=== PATIENT | female | born 1970 | race African-American/Black ===

== ENCOUNTER 2020-05-24 16:22 | Inpatient (IN) | payer MEDICAID, OTHER ==
[~2020-05-24] VITALS: Ht 154.9 cm; Wt 62.6 kg
--- NOTE | 2020-05-24 16:22 | NUR ---
PT BIBRA FROM HOME C/O NAUSEA/VOMITING. PT IS AAOX4, NOT IN RESPIRATORY DISTRESS, HOOKED TO SKIRT PANEL ASSEMBLER, KEPT RESTED AND COMFORTABLE. WILL CONTINUE TO MONITOR.
--- NOTE | 2020-05-24 16:42 | NUR ---
PT SEEN AND EXAMINED BY .
--- NOTE | 2020-05-24 16:48 | NUR ---
IV LINE ESTABLISHED BLOOD DRAWN AND SENT TO LAB.
--- NOTE | 2020-05-24 16:53 | NUR ---
URINAL GIVEN BUT UNABLE TO PROVIDE URINE SPECIMEN THIS TIME.
[2020-05-24] MEDS ORDERED: LIDOCAINE VISCOUS 2% UD 15 ML UDC ONE (16:59)
[2020-05-24] MEDS ORDERED: MAG HYDROX/AL HYDROX/SIMETH 30 ML UDC ONE (16:59)
[2020-05-24] MEDS ORDERED: PANTOPRAZOLE 40 MG VIAL ONE (16:59)
[2020-05-24] MEDS ORDERED: MAG HYDROX/AL HYDROX/SIMETH 30 ML UDC PO ONE (17:00)
[2020-05-24] MEDS ORDERED: IV NS 0.9% 1,000 ML BAG IV ONE (17:00)
[2020-05-24] MEDS ORDERED: PANTOPRAZOLE 40 MG VIAL IV ONE (17:00)
[2020-05-24] MEDS ORDERED: LIDOCAINE VISCOUS 2% UD 15 ML UDC MM ONE (17:00)
--- NOTE | 2020-05-24 17:00 | NUR ---
MOLD STAMPER AT BEDSIDE FOR XRAY
[2020-05-24 17:39] LABS: BASOPHILS % (AUTO) 0.1 % (0.0-2.0); EOSINOPHILS % (AUTO) 16.6 % (0.0-6.0); HEMATOCRIT 44 % (33-45); LYMPHOCYTES # (AUTO) 0.3 /CMM (0.8-4.8); MEAN CORPUSCULAR HGB CONC 32 g/dl (31.0-36.0); MEAN CORPUSCULAR VOLUME 102 fL (82-100); MONOCYTES # (AUTO) 0.5 /CMM (0.1-1.30); MONOCYTES % (AUTO) 3.9 % (2.0-12.0); NEUTROPHILS # (AUTO) 10.8 /CMM (1.8-8.9); NEUTROPHILS % (AUTO) 77.4 % (43.0-81.0); PLATELET COUNT (AUTO) 131 /CMM (150-450); RED BLOOD CELL COUNT(AUTO) 4.26 MIL/uL (4.0-5.2)
[2020-05-24 18:21] LABS: ALANINE AMINOTRANSFERASE < 6 U/L (12-78); ALBUMIN 3.8 g/dL (3.4-5.0); ALKALINE PHOSPHATASE 358 U/L (46-116); BILIRUBIN,DIRECT 6.8 mg/dL (0.0-0.2); BILIRUBIN,TOTAL 8.9 mg/dL (0.2-1.0); CALCIUM, SERUM 9.9 mg/dL (8.5-10.1); CHLORIDE 96 mmol/L (98-107); POTASSIUM 4.5 mmol/L (3.5-5.1); SODIUM SERUM 138 mmol/L (136-145); TOTAL PROTEIN, SERUM 7.6 g/dL (6.4-8.2); UREA NITROGEN, BLOOD 39 mg/dL (7-18)
[2020-05-24 18:25] LABS: ACETAMINOPHEN < 2 ug/ml (10-30); ALCOHOL, BLOOD < 3 mg/dL (0-0); SALICYLATE < 0.2 mg/dL (2.8-20.0)
[2020-05-24 18:27] LABS: GLUCOSE 23 mg/dL (74-106)
[2020-05-24] MEDS ORDERED: DEXTROSE 50%-WATER 50 ML DISP.SYRIN ONE (18:29)
[2020-05-24] MEDS ORDERED: DEXTROSE 50%-WATER 50 ML DISP.SYRIN IVP ONE (18:30)
[2020-05-24 18:37] LABS: CARBON DIOXIDE 12 mmol/L (21-32)
--- NOTE | 2020-05-24 19:06 | NUR ---
REPORT GIVEN TO TAMEKA FRENCH FOR ERLINDA.
--- NOTE | 2020-05-24 19:22 | NUR ---
PATIENT IS AAOX4. NOT IN ANY DISTRESS. CONNECTED TO MONITOR. DISPOSED OF USED EMESIS BAG, PROVIDED WITH NEW EMESIS BAG. BREATHING EVENLY AND UNLABORED ON ROOM AIR.
--- NOTE | 2020-05-24 19:28 | NUR ---
PATIENT IS UNABLE TO PROVIDE URINE. Addendum: 05/24/20 at 1945 by BENEDICTO NOTIFIED
--- NOTE | 2020-05-24 19:28 | NUR ---
DR. RIZZO SPEAKING WITH DR. WILLIS
[2020-05-24] MEDS ORDERED: IV NS 0.9% 1,000 ML IV ONE (20:00)
--- NOTE | 2020-05-24 20:55 | NUR ---
BED ASSIGNMENT 322-2
--- NOTE | 2020-05-24 21:00 | NUR ---
TRIED CALLING FOR REPORT, STAFF STATES THAT THEY WILL CALL BACK IN 15MINUTES.
--- NOTE | 2020-05-24 21:19 | NUR ---
REPORT GIVEN TO FAZAL ENGLISH FOR ERLINDA.
[2020-05-24 22:10] VITALS: BP 80/45
--- NOTE | 2020-05-24 22:10 | NUR ---
telemetry nurseharness inspector note received patient via gurney. transfered to bed. a/ox4. tolerating room air. respirations are even and unlabored. no s/s sob noted. c/o pain in throat. external tele monitor reads hr 120. in no apparent distress. iv access in left and #22 patent and saline locked. band manager obtained vital signs and completed belonging list. patient claims to have intact skin. denies and suicidal ideation at this time. bed is low and locked, hob elevated in semi fowlers, side rials up x2. call light within reach. will continue to monitor.
[2020-05-24 22:30] VITALS: BP 80/45
[2020-05-24] MEDS ORDERED: ZOLPIDEM TARTRATE 5 MG TABLET PO PRN (22:30)
[2020-05-24] MEDS ORDERED: MAGNESIUM HYDROXIDE 30 ML UDC PO PRN (22:30)
[2020-05-24] MEDS ORDERED: Z GUARD REMEDY 2 OZ OINT TP PRN (22:30)
[2020-05-24] MEDS ORDERED: MAG HYDROX/AL HYDROX/SIMETH 30 ML UDC PO PRN (22:30)
[2020-05-24] MEDS ORDERED: HYDROCODONE/APAP 5/325MG TABLET PO PRN (22:30)
[2020-05-24] MEDS ORDERED: ACETAMINOPHEN 325 MG TABLET PO PRN (22:30)
[2020-05-24] MEDS ORDERED: ONDANSETRON HCL/PF 4 MG/2 ML VIAL IVP PRN (22:30)
--- NOTE | 2020-05-24 22:39 | NUR ---
telegraph office telephone clerk note informed aeronautical research engineer md dr. barry that patient bp is 80/50. telephone order 1L NS bolus. order read back noted and carried out.
[2020-05-24] MEDS: IV NS 0.9% 1,000 ML IV PRN (22:52)
[2020-05-24] MEDS: IV D5/0.45 NACL 1,000 ML IV PRN (22:52)
[2020-05-25] VITALS (42 sets, daily range): BP systolic 73–159; BP diastolic 36–88
--- NOTE | 2020-05-25 00:01 | NUR ---
telecommunications manager note kerzuma at bedside. change to soft diet. lidocaine spray for throat.
[2020-05-25 00:15] LABS: APPEARANCE,URINE TURBID (CLEAR); BILIRUBIN,URINE MODERATE (NEGATIVE); BLOOD, URINE LARGE Ery/uL (NEGATIVE); COLOR,URINE BROWN (YELLOW); KETONES,URINE NEGATIVE (NEGATIVE); LEUKOCYTE ESTERASE ,URINE TRACE (NEGATIVE); NITRITE, URINE POSITIVE (NEGATIVE); PROTEIN,URINE >=300 mg/dl (NEGATIVE); UGLUCOSE NEGATIVE (NEGATIVE)
[2020-05-25 00:20] LABS: RBC,URINE 0-2 /HPF (0-2)
[2020-05-25 00:21] LABS: BACTERIA,URINE Many /HPF (None Seen); FINE GRANULAR CASTS,URINE Few /LPF (None Seen); SQUAMOUS EPITHELIAL CELL,UR Moderate /HPF (None Seen); URINE AMORPHOUS URATE Moderate /HPF (None Seen)
[2020-05-25] MEDS ORDERED: LIDOCAINE SOLN 4% 50 ML BOTTLE MM PRN (00:30)
[2020-05-25] MEDS: BLOOD SUGAR DIAGNOSTIC 1 EACH STRIP IN SCH ×4 (06:22→21:14)
[2020-05-25 06:32] LABS: BASOPHILS % (AUTO) 0.1 % (0.0-2.0); EOSINOPHILS % (AUTO) 12.2 % (0.0-6.0); HEMATOCRIT 35 % (33-45); HEMOGLOBIN 11.3 g/dL (11.5-14.8); LYMPHOCYTES # (AUTO) 0.5 /CMM (0.8-4.8); LYMPHOCYTES % (AUTO) 3.3 % (20.0-44.0); MEAN CORPUSCULAR HGB CONC 32 g/dl (31.0-36.0); MEAN CORPUSCULAR VOLUME 101 fL (82-100); MONOCYTES # (AUTO) 0.4 /CMM (0.1-1.30); MONOCYTES % (AUTO) 2.6 % (2.0-12.0); NEUTROPHILS # (AUTO) 11.7 /CMM (1.8-8.9); NEUTROPHILS % (AUTO) 81.8 % (43.0-81.0); PLATELET COUNT (AUTO) 117 /CMM (150-450); RED BLOOD CELL COUNT(AUTO) 3.46 MIL/uL (4.0-5.2); WHITE BLOOD COUNT (AUTO) 14.3 K/uL (4.3-11.0)
--- NOTE | 2020-05-25 06:53 | NUR ---
telephone directory distributor driver closing note patient in bed. a/ox4. tolerating room air. no respiratory distress noted. c/o pain in throat xylidocaine spray not available in omni cell or in night locker per nursing sup, informed patient the [facility] pharmacy should be able to bring the spray. external tele monitor remain sinus tack hr 120. no distress. iv access maintained in left and #22 running d5 1/2 ns @125ml/hr. patient has 1:1 sitter at bedside. bed remains low and locked, hob elevated in semi fowlers, side rials up x2. call light within reach. will endorse to next shift.
[2020-05-25 06:58] LABS: CREATININE 4.4 mg/dL (0.6-1.3); MAGNESIUM 2.3 mg/dL (1.8-2.4); PHOSPHORUS 3.7 mg/dL (2.5-4.9); POTASSIUM 5.1 mmol/L (3.5-5.1)
[2020-05-25 07:00] LABS: THYROID STIMULATING HORMONE 0.021 uIU/mL (0.358-3.74)
--- NOTE | 2020-05-25 07:30 | NUR ---
RECEIVED PATIENT IN BED. NO ACUTE DISTRESS NOTED. PATIENT SLIGHTLY LETHARGIC, BUT ALERT & ORIENTED X4. PATIENT ON ROOM AIR, SATURATING WELL AT 94%. PATIENT ON STITCHER TAPE CONTROLLED MACHINE, SINUS TACHYCARDIA NOTED WITH HR IN 110-120S. PATIENT RIGHT HAND IV ACCESS INTACT, PATENT, FLUSHED WELL. PATIENT SITTER IN PLACE FOR SI, SAFETY MEASURES MAINTAINED. PATIENT SAFETY MEASURES MAINTAINED. CALL LIGHT WITHIN REACH. WILL CONTINUE TO MONITOR.
[2020-05-25] MEDS ORDERED: IV NS 0.9% 1,000 ML IV ONE (08:30)
--- NOTE | 2020-05-25 08:30 | NUR ---
PATIENT BLOOD PRESSURE 72/41. DR. VALDES NOTIFIED, IV NS 1000 ML BOLUS ORDERED. PATIENT ALERT AND ORIENTED X4. PATIENT ABLE TO RESPOND TO QUESTIONS APPROPRIATELY AND COOPERATIVE WITH CARE.
[2020-05-25] MEDS ORDERED: LIDOCAINE VISCOUS 2% UD 15 ML UDC MM PRN (08:57)
[2020-05-25 09:21] LABS: BAND % (MANUAL) 52 % (0.0-5.0); LYMPHOCYTES % (MANUAL) 3 % (16-48); MONOCYTES % (MANUAL) 1 % (0-11.0); NEUTROPHILS % (MANUAL) 44 (42-76)
--- NOTE | 2020-05-25 10:15 | NUR ---
PATIENT TRANSFERRED FROM TELE FLOOR SECONDARY TO HYPOTENSION -PER REPORT SBP>70'S POST 1 L NS BOLUS. PATIENT APPEARS LETHARGIC BUT EASILY AROUSABLE, FOLLOWS SIMPLE COMMANDS AND ANSWERS APPROPRIATELY. ST 120'S ON THE MINTOR. SBP REMAINS ON THE 70'S. SPO2 ON RA 86-PLACED ON 02 AT 3 L N/C -TO KEEP SATS >92%. PLACED PIV #20 ON RFA WITH GOOD BLOOD RETURN.
--- NOTE | 2020-05-25 10:25 | NUR ---
GAVE REPORT TO TAMEKA DAWKINS FOR CONTINUITY OF CARE. PATIENT TRANSFERRED TO ICU FOR HYPOTENSION. PATIENT ALERT & ORIENTED X4, SLIGHTLY LETHARGIC. PATIENT SATURATING WELL, AFEBRILE.
--- NOTE | 2020-05-25 10:30 | NUR ---
NO IMPROVEMENT ON BP. PLACED CALL TO DR. VALDES WITH ORDERS RECEIVED FOR AYANA GTT, SANDOSTATIN GTT AND VIT. K AND PICC LINE INSERTION FOR VASOACTIVE MEDS INFUSION.
[2020-05-25] MEDS: IV NS 0.9% 1,000 ML IV PRN (10:47)
[2020-05-25] MEDS: IV D5/0.45 NACL 1,000 ML IV PRN ×2 (10:51→19:41)
[2020-05-25] MEDS ORDERED: PHYTONADIONE INJ 10 MG/1 ML AMPUL SQ ONE (11:00)
[2020-05-25] MEDS: PANTOPRAZOLE 40 MG VIAL IV SCH ×2 (11:08→21:16)
--- NOTE | 2020-05-25 11:15 | NUR ---
RN NOTES PAGED DR. VALDES ABOUT CRITICAL LEVEL OF GLUCOSE AT 41. INFORMED MD THAT PATIENT IS WITH D5 1/2 NS AT 125 C/HR BUT IS UNABLE TO DRINK ANYTHING AT THE MOMENT BECAUSE OF SORE THROAT. ALSO INFORM MD THAT THERE IS NO CURRENT ORDER FOR D50/50. OBTAINED ORDER FOR D50/50, ORDER NOTED AND CARRIED OUT. WHICH WAS ADMINISTERED PRN FOR LOW BLOOD SUGAR.
[2020-05-25 11:25] LABS: BASOPHILS % (AUTO) 0.1 % (0.0-2.0); EOSINOPHILS % (AUTO) 11.3 % (0.0-6.0); HEMATOCRIT 37 % (33-45); HEMOGLOBIN 11.7 g/dL (11.5-14.8); LYMPHOCYTES # (AUTO) 0.4 /CMM (0.8-4.8); LYMPHOCYTES % (AUTO) 2.8 % (20.0-44.0); MEAN CORPUSCULAR HGB CONC 32 g/dl (31.0-36.0); MEAN CORPUSCULAR VOLUME 103 fL (82-100); MONOCYTES # (AUTO) 0.4 /CMM (0.1-1.30); MONOCYTES % (AUTO) 2.5 % (2.0-12.0); NEUTROPHILS # (AUTO) 12.8 /CMM (1.8-8.9); NEUTROPHILS % (AUTO) 83.3 % (43.0-81.0); PLATELET COUNT (AUTO) 116 /CMM (150-450); RED BLOOD CELL COUNT(AUTO) 3.56 MIL/uL (4.0-5.2); WHITE BLOOD COUNT (AUTO) 15.3 K/uL (4.3-11.0)
[2020-05-25] MEDS: PHENYLEPHRINE 100 MG in IV NS 0.9% 240 ML IV PRN (11:33)
[2020-05-25] MEDS: OCTREOTIDE 1,250 MCG in IV NS 0.9% 247.5 ML IV PRN ×2 (11:34→21:22)
[2020-05-25 11:36] LABS: CALCIUM, SERUM 7.7 mg/dL (8.5-10.1); CREATININE 4.6 mg/dL (0.6-1.3); POTASSIUM 5.3 mmol/L (3.5-5.1)
[2020-05-25] MEDS: DEXTROSE 50%-WATER 50 ML DISP.SYRIN IVP PRN (12:15)
--- NOTE | 2020-05-25 12:45 | NUR ---
RN NOTES BLOOD SUGAR RECHECK, NOW AT 143.
[2020-05-25 13:41] LABS: BAND % (MANUAL) 31 % (0.0-5.0); EOSINOPHILS % (MANUAL) 4 % (0-4); LYMPHOCYTES % (MANUAL) 9 % (16-48); MONOCYTES % (MANUAL) 7 % (0-11.0); NEUTROPHILS % (MANUAL) 49 (42-76)
[2020-05-25 16:47] LABS: BASOPHILS # (AUTO) 0.1 /CMM (0.0-0.2); BASOPHILS % (AUTO) 0.2 % (0.0-2.0); EOSINOPHILS % (AUTO) 7.3 % (0.0-6.0); HEMATOCRIT 33 % (33-45); HEMOGLOBIN 10.6 g/dL (11.5-14.8); LYMPHOCYTES # (AUTO) 0.6 /CMM (0.8-4.8); LYMPHOCYTES % (AUTO) 2.8 % (20.0-44.0); MEAN CORPUSCULAR HGB CONC 32 g/dl (31.0-36.0); MEAN CORPUSCULAR VOLUME 103 fL (82-100); MONOCYTES # (AUTO) 0.5 /CMM (0.1-1.30); MONOCYTES % (AUTO) 2.5 % (2.0-12.0); NEUTROPHILS # (AUTO) 18.5 /CMM (1.8-8.9); NEUTROPHILS % (AUTO) 87.2 % (43.0-81.0); PLATELET COUNT (AUTO) 100 /CMM (150-450); RED BLOOD CELL COUNT(AUTO) 3.21 MIL/uL (4.0-5.2); WHITE BLOOD COUNT (AUTO) 21.2 K/uL (4.3-11.0)
[2020-05-25 17:18] LABS: BAND % (MANUAL) 12 % (0.0-5.0); EOSINOPHILS % (MANUAL) 2 % (0-4); LYMPHOCYTES % (MANUAL) 14 % (16-48); METAMYELOCYTES % 8 % (0-0); MONOCYTES % (MANUAL) 5 % (0-11.0); MYELOCYTES % 3 % (0-0); NEUTROPHILS % (MANUAL) 55 (42-76); REACTIVE LYMPHOCYTES 1 % (0-0)
[2020-05-25] MEDS ORDERED: FUROSEMIDE 100 MG/10 ML VIAL IV ONE (18:30)
[2020-05-25] MEDS: ALBUMIN 25% 25 GM in PREMIX 1 EA IV SCH (19:23)
--- NOTE | 2020-05-25 19:35 | NUR ---
ICU/ANVIL SEATING PRESS OPERATOR PT HAD BEEN GIVEN 100MG OF LASIX. WILL MONITOR THIS PT'S OUTPUT.
[2020-05-25] MEDS: CEFTRIAXONE 1 G in IV D5W 50 ML IV SCH (20:22)
--- NOTE | 2020-05-25 20:45 | NUR ---
ICU/EXTENSION WORK DIRECTOR COLLECTED A URINE FOR A URINE CULTURE, CREATINE, RANDOM, PROTEIN, AND URINE PROFILE. LAB WAS CALLED TO [place]HALT PAVING MACHINE OPERATOR.
--- NOTE | 2020-05-25 21:10 | NUR ---
ICU/CARAMEL COLORING OPERATOR BLOOD SUGAR IS 121, WILL CONTINUE TO MONITOR THIS PT'S SUGARS ORDERED BY .
[2020-05-25 21:55] LABS: ALBUMIN 2.8 g/dL (3.4-5.0); BILIRUBIN,TOTAL 19.5 mg/dL (0.2-1.0); CALCIUM, SERUM 6.8 mg/dL (8.5-10.1); CREATININE 5.3 mg/dL (0.6-1.3); MAGNESIUM 2.1 mg/dL (1.8-2.4); PHOSPHORUS 2.8 mg/dL (2.5-4.9); POTASSIUM 5.2 mmol/L (3.5-5.1); TOTAL PROTEIN, SERUM 4.8 g/dL (6.4-8.2)
--- NOTE | 2020-05-25 21:59 | NUR ---
ICU/NEWS REEL CAMERAMAN H&H WAS COLLECTED ORDERED BY MD EVERY 4 HOURS. MONITOR THE H&H.
[2020-05-25 22:29] LABS: HEMOGLOBIN 10.2 g/dL (11.5-14.8)
[2020-05-25 22:39] LABS: CREATININE, URINE 169.1 MG/DL (30.0-125.0)
[2020-05-25 22:44] LABS: APPEARANCE,URINE CLOUDY (CLEAR); BILIRUBIN,URINE LARGE (NEGATIVE); BLOOD, URINE LARGE Ery/uL (NEGATIVE); COLOR,URINE AMBER (YELLOW); KETONES,URINE TRACE (NEGATIVE); LEUKOCYTE ESTERASE ,URINE TRACE (NEGATIVE); NITRITE, URINE POSITIVE (NEGATIVE); PH,URINE 6.5 (5.0-8.0); PROTEIN,URINE >=300 mg/dl (NEGATIVE); UGLUCOSE 100 MG/DL mg/dL (NEGATIVE)
[2020-05-25] MEDS ORDERED: SODIUM POLYSTYRENE SULFONATE 15 G/60 ML BOTTLE PO ONE (23:00)
[2020-05-25] MEDS ORDERED: SODIUM BICARBONATE SYR 50 MEQ/50 ML DISP.SYRIN ONE (23:01)
[2020-05-25 23:15] LABS: BACTERIA,URINE Moderate /HPF (None Seen); SQUAMOUS EPITHELIAL CELL,UR Moderate /HPF (None Seen)
[2020-05-25 23:16] LABS: URINE AMORPHOUS URATE Moderate /HPF (None Seen)
[2020-05-25 23:25] LABS: EOSINOPHIL,URINE None Seen
[2020-05-25] MEDS: Sodium Bicarbonate 50 MEQ in IV D5/0.45 NACL 1,000 ML IV PRN (23:30)
[2020-05-25] MEDS ORDERED: SODIUM POLYSTYRENE SULFONATE 15 G/60 ML BOTTLE ONE (23:34)
[2020-05-26] VITALS (31 sets, daily range): BP systolic 83–165; BP diastolic 40–98
[2020-05-26] MEDS: PHENYLEPHRINE 100 MG in IV NS 0.9% 240 ML IV PRN (01:05)
--- NOTE | 2020-05-26 01:30 | NUR ---
ICU/OPERATOR LIGHTS PT IS NPO, CALLED VIDEO PRODUCTION ASSISTANT ABOUT PLACING A NGT TO GIVE KAYEXALATE, HOWEVER DUE TO POSSIBLE GI BLEED GOT AN ORDER TO DO THIS RECTALLY.
[2020-05-26] MEDS: ALBUMIN 25% 25 GM in PREMIX 1 EA IV SCH ×2 (02:48→09:35)
[2020-05-26 02:56] LABS: BASOPHILS # (AUTO) 0.1 /CMM (0.0-0.2); BASOPHILS % (AUTO) 0.3 % (0.0-2.0); EOSINOPHILS % (AUTO) 5.5 % (0.0-6.0); HEMATOCRIT 33 % (33-45); HEMOGLOBIN 10.5 g/dL (11.5-14.8); LYMPHOCYTES # (AUTO) 1.1 /CMM (0.8-4.8); LYMPHOCYTES % (AUTO) 3.8 % (20.0-44.0); MEAN CORPUSCULAR HGB CONC 32 g/dl (31.0-36.0); MEAN CORPUSCULAR VOLUME 103 fL (82-100); MONOCYTES # (AUTO) 0.6 /CMM (0.1-1.30); MONOCYTES % (AUTO) 2.1 % (2.0-12.0); NEUTROPHILS # (AUTO) 25.7 /CMM (1.8-8.9); NEUTROPHILS % (AUTO) 88.3 % (43.0-81.0); PLATELET COUNT (AUTO) 98 /CMM (150-450); RED BLOOD CELL COUNT(AUTO) 3.17 MIL/uL (4.0-5.2); WHITE BLOOD COUNT (AUTO) 29.1 K/uL (4.3-11.0)
--- NOTE | 2020-05-26 04:10 | NUR ---
ICU/MAIL HANDLER SORTER STOOL WAS DARK, STOOL SENT FOR STOOL OCCULT. H&H IS DROPPING COULD BE POSSIBLE SOURCE.
[2020-05-26 05:15] LABS: BASOPHILS # (AUTO) 0.1 /CMM (0.0-0.2); BASOPHILS % (AUTO) 0.3 % (0.0-2.0); EOSINOPHILS % (AUTO) 5.7 % (0.0-6.0); HEMATOCRIT 30 % (33-45); HEMOGLOBIN 9.8 g/dL (11.5-14.8); LYMPHOCYTES # (AUTO) 1.3 /CMM (0.8-4.8); LYMPHOCYTES % (AUTO) 4.5 % (20.0-44.0); MEAN CORPUSCULAR HGB CONC 33 g/dl (31.0-36.0); MEAN CORPUSCULAR VOLUME 102 fL (82-100); MONOCYTES # (AUTO) 0.7 /CMM (0.1-1.30); MONOCYTES % (AUTO) 2.4 % (2.0-12.0); NEUTROPHILS # (AUTO) 24.5 /CMM (1.8-8.9); NEUTROPHILS % (AUTO) 87.1 % (43.0-81.0); PLATELET COUNT (AUTO) 87 /CMM (150-450); RED BLOOD CELL COUNT(AUTO) 2.96 MIL/uL (4.0-5.2); WHITE BLOOD COUNT (AUTO) 28.2 K/uL (4.3-11.0)
--- NOTE | 2020-05-26 05:16 | NUR ---
ICU/HOUSEHOLD APPLIANCE REPAIRER PT APPEARS TO BE LETHARGIC AND AGITATED, GOT ORDER FOR STAT ABG AND AMMONIA LEVEL.
[2020-05-26 05:17] LABS: ABG BASE EXCESS -11.1 mmol/L; ABG OXYGEN SATURATION 96.6 % (92.0-98.5); ABG PCO2 25.8 mmHg (35.0-45.0); ABG PH 7.332 (7.350-7.450); ABG PO2 99.5 mmHg (75.0-100.0); AaDO2 127.3 mmHg; COHb 1.9 % (0.5-1.5); MetHb 1.5 % (0.0-1.5); O2Hb 93.3 % (94.0-97.0); SITE, ABG Right Brachial; VENT MODE, BG 4LPM NC
--- NOTE | 2020-05-26 05:30 | NUR ---
ICU/FINANCE DIRECTOR ABG RESULTS WERE OK, BICARB WAS LOW HOWEVER PT IS CURRENTLY GETTING BICARB IN IVF AT THIS TIME. CHARGE NURSE WAS GIVEN ABG RESULTS. NO ABNORMAL RESULTS. AND NO NEED TO CALL DENTAL HYGIENIST MD FOR ORDERS.
[2020-05-26 05:39] LABS: BAND % (MANUAL) 38 % (0.0-5.0); EOSINOPHILS % (MANUAL) 3 % (0-4); LYMPHOCYTES % (MANUAL) 19 % (16-48); METAMYELOCYTES % 2 % (0-0); MONOCYTES % (MANUAL) 4 % (0-11.0); MYELOCYTES % 2 % (0-0); NEUTROPHILS % (MANUAL) 32 (42-76)
[2020-05-26 06:14] LABS: ALBUMIN 2.9 g/dL (3.4-5.0); BILIRUBIN,TOTAL 23.4 mg/dL (0.2-1.0); CALCIUM, SERUM 6.8 mg/dL (8.5-10.1); CREATININE 5.5 mg/dL (0.6-1.3); MAGNESIUM 2.2 mg/dL (1.8-2.4); PHOSPHORUS 2.3 mg/dL (2.5-4.9); POTASSIUM 4.9 mmol/L (3.5-5.1); TOTAL PROTEIN, SERUM 4.6 g/dL (6.4-8.2)
[2020-05-26 06:42] LABS: OCCULT BLOOD STOOL NEGATIVE (NEGATIVE)
--- NOTE | 2020-05-26 07:15 | NUR ---
COLOR STRAINING BAG WASHER NOTES RECEIVED PATIENT AGITATED , RESTLESS , LETHARGIC , CONFUSED , NOT IN ACUTE DISTRESS , RESPIRATORY EVEN AND UNLABORED WITH SPO2 OF 95% VIA RA , ST 115 ON BEDSIDE MONITOR , FC DRAINING VIA GRAVITY WITH DARK TEA COLORED URINE TANIA PICC WITH SANDOSTATIN @ 5ML/HR , NEOSYNEPRINE @ 0.5MCG/KG/MIN , D5 0.4 WITH 1 AMP OF SODIUM BICARB @ 125ML/HR INFUSING WELL , ALL NEEDS ATTENDED , 1:1 SITTER AT BEDSIDE , WILL CONTINUE TO MONITOR
--- NOTE | 2020-05-26 07:20 | NUR ---
HOT BOX OPERATOR NOTES PT AGITATED , CONFUSED , TRYING TO GET OUT OF THE BED , PAGED DR VALDES FOR PRN ORDERS .
[2020-05-26] MEDS: BLOOD SUGAR DIAGNOSTIC 1 EACH STRIP IN SCH ×4 (07:31→22:09)
[2020-05-26] MEDS: PANTOPRAZOLE 40 MG VIAL IV SCH ×2 (08:00→21:25)
[2020-05-26] MEDS: LORAZEPAM INJ 2 MG/ML VIAL IV PRN ×3 (08:11→22:27)
--- NOTE | 2020-05-26 08:45 | NUR ---
EMPLOYMENT PROGRAM REPRESENTATIVE NOTES SEEN AND EVALUATED BY DR VALDES AND DR DOE BASSETT , DISCUSSED LABS , ABG AND AMMONIA LEVEL, PT CURRENT MENTAL STATUS AND V/S , AFEBRILE , ON NEOSYNEPRINE @ 0.3MCG/KG/MIN , LOW URINE OUTPUT , ST 115-120 , VERIFIED WITH DR VALDES IF HE WANTS TO TREND H/H AND BMP , PER MD NO NEED TO TREND , MAY DC CBC @ 1000 AND BMP AT 1200 , ORDER LIPASE FOR TOMORROW AND FOLLOW UP FOR COAGULATION PANEL , PER DR AZAR PT NEEDS HD , WILL CONTINUE TO MONITOR
[2020-05-26] MEDS: Sodium Bicarbonate 50 MEQ in IV D5/0.45 NACL 1,000 ML IV PRN ×2 (09:22→18:28)
--- NOTE | 2020-05-26 10:56 | NUR ---
BENCH ASSEMBLER BATTERY NOTES VERIFIED WITH DR AZAR IF HE WANTS TO CONTINUE CURRENT IVF OF THE PT PT HAS LOW URINE OUTPUT , PER MD CONTINUE FOR NOW .
--- NOTE | 2020-05-26 11:18 | NUR ---
DATA PROGRAMMER NOTES LIPASE LEVEL RELAYED TO DR LUCIO MD AWARE
--- NOTE | 2020-05-26 12:52 | NUR ---
WEAVER APPRENTICE NOTES NOTIFIED DR VALDES THAT MRCP IS UNABLE TO BE DONE PT NOTED WITH MILD AGITATION POST ATIVAN 1MG PRN , CENTRIFUGAL EXTRACTOR OPERATOR SAW AND ASSESSED THE PT , WILL RE CHECK FOR PT TOMORROW
--- NOTE | 2020-05-26 13:13 | NUR ---
CASHIER ASSOCIATE NOTES SEEN AND EVALUATED BY DR ELIZABETH , DISCUSSED LABS , AST , ALT AND LIPASE LEVEL , NEURO STATU , AGITATED , CONFUSED , RESTLESS , MRCP UNABLE TO BE DONE PT NOTED WITH MILD AGITATION DESPITE OF ATIVAN . MD AWARE , RECOMMENDING PT TO BE TRANSFERRED TO HIGHER LEVEL OF CARE . Addendum: 05/26/20 at 1319 by EM LIMON RN AMMONIA LEVEL NOTIFIED , CBC TREND DISCONTINUED BY DR VALDES , VERIFIED IF HES OK WITH THAT , MD AWARE NO NEED TO TREND CBC , NO NEW ORDERS RECEIVED
--- NOTE | 2020-05-26 14:21 | NUR ---
APRN NOTES NOTIFIES PT INR RESULT TO DR ELIZABETH AND DR VALDES , DR VALDES ORDERED VIT K10MG IV X1 , ORDER CARRIED OUT
[2020-05-26] MEDS ORDERED: PHYTONADIONE INJ 10 MG/1 ML AMPUL IV SCH (14:30)
--- NOTE | 2020-05-26 15:11 | NUR ---
IT PROJECT MANAGER NOTES VERIFY VIT K ORDER TO DR VALDES PHARMACY IS ASKING IF WE CAN GIVE SQ , PER DR VALDES GIVE IT THRU IV INFUSION , ORDER CARRIED OUT
[2020-05-26] MEDS ORDERED: PHYTONADIONE INJ 10 MG in IV D5W 50 ML IV ONE (15:30)
[2020-05-26 17:41] LABS: ABG BASE EXCESS -6.8 mmol/L; ABG OXYGEN SATURATION 93.7 % (92.0-98.5); ABG PCO2 28.4 mmHg (35.0-45.0); ABG PH 7.396 (7.350-7.450); ABG PO2 70.6 mmHg (75.0-100.0); AaDO2 131.5 mmHg; COHb 2.5 % (0.5-1.5); MetHb 0.8 % (0.0-1.5); O2Hb 90.6 % (94.0-97.0); SITE, ABG Right Radial; VENT MODE, BG nasal cannula
--- NOTE | 2020-05-26 17:47 | NUR ---
COKE BURNER NOTES PT NOTED TO BE ALTERED , RESPONSIVE TO DEEP STIMULI , ABG ORDERED . AWAITING FOR RESULT NOTIFIED DR ELIZABETH REGARDING AMMONIA LEVEL TODAY MD IS AWARE ABOUT THE RESULTS AND NO NEW ORDERS EARLIER , VERIFIED IF HE WANTS TO RECHECK LEVEL TODAY OR TOMORROW . AWAITING FOR RESPONSE
--- NOTE | 2020-05-26 18:14 | NUR ---
INSPECTOR GLASS OR MIRROR NOTES SPOKE WITH DR VALDES , DISCUSSED PT IS ALTERED , RESPONSIVE TO DEEP PAIN STIMULI , ATIVAN 1MG GIVEN AROUND 1200 , ABG DONE , RESULTS RELATED , VERIFY IF HE WANTS TO RE CHECK AMMONIA LEVEL , MD AWARE , PER MD JUST MONITOR PT , NO NEW ORDERS RECEIVED
--- NOTE | 2020-05-26 19:15 | NUR ---
RN NOTE RECEIVED PT RESTING IN BED. FULL CODE. NO SIGNS OF RESPIRATORY DISTRESS. MONITOR PRESENTS PT ST 109. ON O2 AT 4L VIA NC. IV SITE RIGHT PICC FLUSHING WELL AND INTACT. FC DRAINING VIA GRAVITY, POLI COLORED. BED IS LOCKING AND LOWEST POSITION. CALL LIGHT WITHIN REACH. NEEDS ANTICIPATED. WILL CONTINUE TO MONITOR.
--- NOTE | 2020-05-26 19:24 | NUR ---
RETAIL SERVICE LEAD MERCHANDISER NOTES PATIENT STABLE AT THIS TIME , ALTERED RESPONSIVE TO PAIN STIMULI , , NOT IN ACUTE DISTRESS ON 4LPM SPO2 OF 100, VIA RA , ST 114 ON BEDSIDE MONITOR , FC DRAINING VIA GRAVITY WITH POLI COLORED URINE TANIA PICC WITH D5 0.4 WITH 1 AMP OF SODIUM BICARB @ 125ML/HR INFUSING WELL , ALL NEEDS ATTENDED , REPORT GIVEN TO MARISOL FOR CONTINUITY OF CARE
[2020-05-26] MEDS: CEFTRIAXONE 1 G in IV D5W 50 ML IV SCH (19:46)
[2020-05-27] VITALS (34 sets, daily range): BP systolic 85–156; BP diastolic 42–96
--- NOTE | 2020-05-27 03:02 | NUR ---
RN NOTE CLEANED PT. 1 MUCOID LIKE BM. PT BEGAN TO DESAT 80. CALLED RT TANNA TO ASSIST AND PLACED NONREBREATHER MASK AT 15L OF O2. PT IS TOLERATING WELL, SATURATION IS AT 99%. WILL CONTINUE TO CLOSELY MONITOR.
[2020-05-27] MEDS: LORAZEPAM INJ 2 MG/ML VIAL IV PRN ×2 (03:26→10:08)
[2020-05-27] MEDS: Sodium Bicarbonate 50 MEQ in IV D5/0.45 NACL 1,000 ML IV PRN ×3 (03:45→19:58)
[2020-05-27 04:38] LABS: BASOPHILS # (AUTO) 0.3 /CMM (0.0-0.2); BASOPHILS % (AUTO) 0.6 % (0.0-2.0); EOSINOPHILS % (AUTO) 3.1 % (0.0-6.0); HEMATOCRIT 26 % (33-45); HEMOGLOBIN 8.7 g/dL (11.5-14.8); LYMPHOCYTES # (AUTO) 3.6 /CMM (0.8-4.8); LYMPHOCYTES % (AUTO) 9.2 % (20.0-44.0); MEAN CORPUSCULAR HGB CONC 33 g/dl (31.0-36.0); MEAN CORPUSCULAR VOLUME 100 fL (82-100); MONOCYTES # (AUTO) 1.7 /CMM (0.1-1.30); MONOCYTES % (AUTO) 4.3 % (2.0-12.0); NEUTROPHILS # (AUTO) 32.5 /CMM (1.8-8.9); NEUTROPHILS % (AUTO) 82.8 % (43.0-81.0); PLATELET COUNT (AUTO) 70 /CMM (150-450)
[2020-05-27 04:54] LABS: WHITE BLOOD COUNT (AUTO) 39.3 K/uL (4.3-11.0)
[2020-05-27 05:24] LABS: ALBUMIN 2.7 g/dL (3.4-5.0); BILIRUBIN,TOTAL 35.4 mg/dL (0.2-1.0); CALCIUM, SERUM 6.2 mg/dL (8.5-10.1); CREATININE 7.1 mg/dL (0.6-1.3); MAGNESIUM 2.2 mg/dL (1.8-2.4); POTASSIUM 3.7 mmol/L (3.5-5.1); TOTAL PROTEIN, SERUM 4.1 g/dL (6.4-8.2)
[2020-05-27 05:56] LABS: BAND % (MANUAL) 6 % (0.0-5.0); MONOCYTES % (MANUAL) 4 % (0-11.0)
[2020-05-27 05:57] LABS: EOSINOPHILS % (MANUAL) 3 % (0-4); LYMPHOCYTES % (MANUAL) 4 % (16-48); NEUTROPHILS % (MANUAL) 83 (42-76)
--- NOTE | 2020-05-27 06:37 | NUR ---
INDUSTRIAL ELECTRICAL TECHNICIAN NOTE PT IS ASLEEP, RESTING IN BED. HAS NONREBREATHER MASK 15L SATURATING AT 98. NO SIGNS OF APPARENT DISTRESS. RECEIVED CRITICAL LAB VALUES WBC 39.3 AND BUN 86, DOCTOR LAZARO MADE AWARE. NO NEW ORDERS RECIEVED. WILL ENDORSE ONCOMING NURSE FOR CONTINUATION OF CARE.
--- NOTE | 2020-05-27 07:20 | NUR ---
RN INITIAL NOTES RECEIVED PT ON [id number] 15LPM. HOB ELEVATED. NO RESPIRATORY DISTRESS NOTED. NO SOB NOTED. NO SIGNS OF PAIN NOTED. PT NPO. TANIA PICC IN PLACE. IVF INFUSING. SANTOYO IN PLACE. WILL MONITOR FOR SIGNS OF BLEEDING. BLE ELEVATED. WILL CLOSELY MONITOR
[2020-05-27] MEDS: BLOOD SUGAR DIAGNOSTIC 1 EACH STRIP IN SCH ×4 (07:53→23:51)
[2020-05-27 08:28] LABS: PTH, INTACT 342 pg/mL (15-65)
[2020-05-27] MEDS: PANTOPRAZOLE 40 MG VIAL IV SCH ×2 (08:43→21:54)
[2020-05-27 09:15] LABS: COMPLEMENT C3, SERUM 19 mg/dL (82-167); COMPLEMENT C4, SERUM 2 mg/dL (14-44)
[2020-05-27 09:20] LABS: ABG BASE EXCESS -4.3 mmol/L; ABG OXYGEN SATURATION 97.9 % (92.0-98.5); ABG PCO2 34.5 mmHg (35.0-45.0); ABG PH 7.385 (7.350-7.450); ABG PO2 270.5 mmHg (75.0-100.0); COHb 0.3 % (0.5-1.5); MetHb 0.5 % (0.0-1.5); O2Hb 97.1 % (94.0-97.0); SITE, ABG Left Radial
--- NOTE | 2020-05-27 09:45 | NUR ---
RN NOTES SEEN BY DR ALAS. AWARE OF PT'S CONDITION, LATEST LABS,ABG AND IMAGING STUDIES. PT OBTUNDED. NO GAG OR COUGH REFLEX. MD ORDERED INTUBATION FOR AIRWAY PROTECTION. WILL CALL ER MD. WILL CLOSELY MONITOR
[2020-05-27] MEDS ORDERED: LACTULOSE 10 G/15 ML UDC (PYXIS) PO PRN (10:00)
--- NOTE | 2020-05-27 10:10 | NUR ---
RN NOTES PT INTUBATED FOR AIRWAY PROTECTION DONE BY DR JOHNSON. STAT CXR ORDERED TO VERIFY PLACEMENT. HOB ELEVATED. WILL CLOSELY MONITOR.
--- NOTE | 2020-05-27 10:15 | NUR ---
RT PT ORALLY INTUBATED BY DR HOWARD WITH A 7.5 ETT SECURE AT 23CM AT THE LIP. CO2 DETECTOR COLOR CHANGE NOTED. PLACED ON [facility] VENT WITH ORDERED SETTINGS. PT TOLERATING VENT SETTINGS. NOTICED BLEEDING INSIDE THE MOUTH, RN AWARE. SX'D AND LAVAGE FOR MOD AMT OF RED SECRETIONS. AMBU BAG AT BEDSIDE. VENT ALARMS SET AND AUDIBLE. VENT PLUGGED INTO RED OUTLET. CONTINUE [facility] VENT SUPPORT. Addendum: 05/29/20 at 1211 by SENTHIL GREGG RT Amended: Links added.
[2020-05-27 11:45] LABS: ABG OXYGEN SATURATION 98.2 % (92.0-98.5); ABG PH 7.435 (7.350-7.450); ABG PO2 253.2 mmHg (75.0-100.0); AaDO2 431.8 mmHg; COHb 0.3 % (0.5-1.5); MetHb 0.5 % (0.0-1.5); O2Hb 97.4 % (94.0-97.0); SITE, ABG Right Radial
[2020-05-27] MEDS ORDERED: ETOMIDATE 2 MG/ML VIAL IV ONE (12:26)
[2020-05-27] MEDS ORDERED: ROCURONIUM BROMIDE 50 MG/5 ML IV ONE (12:26)
[2020-05-27 13:21] LABS: PLATELET COUNT (AUTO) 66 /CMM (150-450)
[2020-05-27 14:13] LABS: D-DIMER > 35.00 mg/L(FEU (0.17-0.50)
--- NOTE | 2020-05-27 18:48 | NUR ---
RN CLOSING NOTES PT REMAINS INTUBATED, ON VENT. NO RESPIRATORY DISTRESS. NO SIGNS OF PAIN. PT REMAINS OBTUNDED. HEMODIALYSIS DONE. NO OUTPUT. KEPT CLEAN AND DRY. KEPT COMFORTABLE. BLE ELEVATED. WILL ENDORSE FOR CONTINUITY OF CARE.
[2020-05-27] MEDS ORDERED: PHENYLEPHRINE 10 MG/ML VIAL ONE (19:12)
--- NOTE | 2020-05-27 19:15 | NUR ---
ICU/RN RECEIVED PATIENT INTUBATED WITH NO SEDATION. SEEMS TO BE TOLERATING VENT SETTINGS ORDERED. PATIENT ON MONITOR SHOWING SINUS RHYTHM HR IN THE 80'S. PATIENT IS NON RESPONSIVE TO TOUCH OR SOUND. PUPILS SLUGGISH AND JAUNDICE NOTICED. NO REACTION TO ANY STIMULI. PATIENT HAS TANIA PICC LINE WITH BICARB RUNNING AT 125ML/HR. PATIENT BP BEGAN TO DROP SO ORDER WAS OBTAINED FROM PRIOR NURSE TO START AYANA. FC INTACT AND DRAINING VIA GRAVITY WITH BLOODY URINE ASSESSED. SUCTION WAS PERFORMED WITH BLOOD SECRETIONS. NO SIGN OF DETERIORATION AT THE MOMENT WILL CONTINUE TO MONITOR PATIENT THROUGHOUT SHIFT.
[2020-05-27] MEDS: PHENYLEPHRINE 100 MG in IV NS 0.9% 240 ML IV PRN (19:37)
--- NOTE | 2020-05-27 20:00 | NUR ---
TEMP WAS TAKEN NOT ABLE TO GET A TEMP AXILIARY WITH APPLUE WARMING BLANKETS AND REASSESS.
[2020-05-27] MEDS: CEFTRIAXONE 1 G in IV D5W 50 ML IV SCH (20:48)
--- NOTE | 2020-05-27 22:00 | NUR ---
TEMP STILL NOT ABLE TO READ THROUGH AXILLARY. RECTAL PROBED WAS ENTERED. TEMP READ 94.0. KIERA SEAY APPLIED. WILL MONITOR PATIENT.
[2020-05-28] VITALS (95 sets, daily range): BP systolic 78–152; BP diastolic 43–82
[2020-05-28 03:57] LABS: BASOPHILS # (AUTO) 0.1 /CMM (0.0-0.2); BASOPHILS % (AUTO) 0.4 % (0.0-2.0); EOSINOPHILS % (AUTO) 2.6 % (0.0-6.0); HEMATOCRIT 21 % (33-45); HEMOGLOBIN 7.1 g/dL (11.5-14.8); LYMPHOCYTES # (AUTO) 4.1 /CMM (0.8-4.8); LYMPHOCYTES % (AUTO) 16.3 % (20.0-44.0); MEAN CORPUSCULAR HGB CONC 34 g/dl (31.0-36.0); MEAN CORPUSCULAR VOLUME 98 fL (82-100); MONOCYTES # (AUTO) 1.1 /CMM (0.1-1.30); MONOCYTES % (AUTO) 4.3 % (2.0-12.0); NEUTROPHILS # (AUTO) 19.2 /CMM (1.8-8.9); NEUTROPHILS % (AUTO) 76.4 % (43.0-81.0); WHITE BLOOD COUNT (AUTO) 25.1 K/uL (4.3-11.0)
[2020-05-28 04:03] LABS: PLATELET COUNT (AUTO) 48 /CMM (150-450)
[2020-05-28 04:25] LABS: ALBUMIN 2.1 g/dL (3.4-5.0); BILIRUBIN,DIRECT 28.5 mg/dL (0.0-0.2); BILIRUBIN,TOTAL 36.6 mg/dL (0.2-1.0); CALCIUM, SERUM 6.2 mg/dL (8.5-10.1); CREATININE 5.7 mg/dL (0.6-1.3); PHOSPHORUS 1.2 mg/dL (2.5-4.9); TOTAL PROTEIN, SERUM 3.5 g/dL (6.4-8.2)
[2020-05-28 04:27] LABS: BAND % (MANUAL) 12 % (0.0-5.0); EOSINOPHILS % (MANUAL) 2 % (0-4); LYMPHOCYTES % (MANUAL) 8 % (16-48); MONOCYTES % (MANUAL) 5 % (0-11.0); NEUTROPHILS % (MANUAL) 74 (42-76)
[2020-05-28] MEDS: Sodium Bicarbonate 50 MEQ in IV D5/0.45 NACL 1,000 ML IV PRN ×2 (04:39→06:57)
[2020-05-28 04:42] LABS: POTASSIUM 2.8 mmol/L (3.5-5.1)
--- NOTE | 2020-05-28 05:58 | NUR ---
END OF SHIFT NO CHANGES NOTED IN PT STATUS ALL SHIFT. PT REMAINS ORALLY INTUBATED WITH ETT PROPERLY SECURED. VENT AND ALARMS WELL FUNCTIONING WITH AMBU BAG AT BEDSIDE. SX PRN MOD BLOOD TINGED SECRETIONS. NO DISTRESS NOTED.
--- NOTE | 2020-05-28 06:00 | NUR ---
RECEIVED CRITICAL LAB OF PLATELET OF 48. PER PROTOCOL MADE LAZARO AWARE OF CRITICAL LAB. NNO GIVEN
--- NOTE | 2020-05-28 07:03 | NUR ---
ICU/RN PATIENT STABLE NO SIGN OF ANY DISTRESS. AYANA RUNNING AT 0.5MCG/KG/MIN/ TOLERATING VENT SETTINGS. ENDORSED PATIENT TO MORNING SIFT NURSE FOR ERLINDA.
--- NOTE | 2020-05-28 07:20 | NUR ---
RN INITIAL NOTES RECEIVED PT INTUBATED, ON VENT. NO RESPIRATORY DISTRESS NOTED. NO SOB NOTED. NO SIGNS OF PAIN NOTED. PT OBTUNDED. NGT IN PLACE, CLAMPED. TANIA PICC IN PLACE. IVF INFUSING. ON AYANA AT 0.5MCG/KG/MIN. RIGHT FEMORAL HD CATH IN PLACE. SANTOYO IN PLACE. BLE ELEVATED. WILL CLOSELY MONITOR
[2020-05-28 08:12] LABS: ABG BASE EXCESS 2.6 mmol/L; ABG PCO2 31.4 mmHg (35.0-45.0); ABG PH 7.526 (7.350-7.450); ABG PO2 253.6 mmHg (75.0-100.0); AaDO2 139.7 mmHg; COHb 1.2 % (0.5-1.5); MetHb 0.3 % (0.0-1.5); O2Hb 96.5 % (94.0-97.0); SITE, ABG Right Radial
[2020-05-28] MEDS: PANTOPRAZOLE 40 MG VIAL IV SCH ×2 (08:31→21:03)
[2020-05-28] MEDS: BLOOD SUGAR DIAGNOSTIC 1 EACH STRIP IN SCH ×4 (08:43→21:51)
--- NOTE | 2020-05-28 09:41 | NUR ---
RN NOTES [address] VALDES. PT INTUBATED. ON VENT. OBTUNDED. NO COUGH NOR GAG REFLEX. MD AWARE OF LATEST LABS AND IMAGING STUDIES. NO ADDITIONAL ORDER AT THIS TIME. WILL MONITOR [address] ALAS. AWARE OF ABG RESULT. VENT SETTINGS ADJUSTED. MD ORDER TO DO HEAD CT WO CONTRAST ONCE COVID RNA RESULT IS NEGATIVE. WILL MONITOR [address] MOLINA. PT HAS INITIAL HEMODIALYSIS YESTERDAY. TOLERATED WELL. AWARE OF LOW POTASSIUM AND PHOSPHORUS LEVEL. PER MD, WILL CHECK PT'S PROFILE SHORTLY.
[2020-05-28] MEDS: PHENYLEPHRINE 100 MG in IV NS 0.9% 240 ML IV PRN (13:51)
--- NOTE | 2020-05-28 15:00 | NUR ---
RN JAVIER SPAULDING FROM [facility] LIVER TRANSPLANT CALLED. ALL PERTINENT INFORMATION GIVEN. WILL CALL BACK FOR UPDATES
--- NOTE | 2020-05-28 18:41 | NUR ---
RN CLOSING NOTES PT REMAINS INTUBATED, ON VENT. NO RESPIRATORY DISTRESS. NO SIGNS OF PAIN NOTED. REMAINS ON AYANA DRIP, TITRATED ACCORDINGLY. HEMODIALYSIS DONE. NO OUTPUT. KEPT CLEAN AND DRY. KEPT COMFORTABLE. WILL ENDORSE FOR CONTINUITY OF CARE.
[2020-05-28] MEDS: MEROPENEM 500 MG in IV NS 0.9% 50 ML IV SCH (21:02)
[2020-05-28] MEDS: DEXTROSE 50%-WATER 50 ML DISP.SYRIN IVP PRN (21:15)
--- NOTE | 2020-05-28 22:13 | NUR ---
RECEIVED PT INTUBATED 7.5 ETT SECURE AT 23CM AT THE LIP. PT TOLERATING VENT SETTINGS. NOTICED BLEEDING INSIDE THE MOUTH, RN AWARE. SX'D AND LAVAGE FOR MOD AMT OF RED SECRETIONS. AMBU BAG AT BEDSIDE. VENT ALARMS SET AND AUDIBLE. VENT PLUGGED INTO RED OUTLET. CONTINUE [facility] VENT SUPPORT. Addendum: 05/28/20 at 2215 by ARCHANA LYON RT Amended: Links added.
--- NOTE | 2020-05-28 22:27 | NUR ---
SPUTUM SAMPLE COLLECTED.
[2020-05-29] VITALS (67 sets, daily range): BP systolic 74–127; BP diastolic 45–77
--- NOTE | 2020-05-29 01:12 | NUR ---
RN NOTES INFORMED MD REGARDING THE PATIENT GT RESIDUAL EVERY 2H IS >[address] WILLIS TO CONNECT GT TO LIS AND ADMINISTER REGLAN 10 MG IVP Q8H NOTED AND CARRIED OUT ORDER.
[2020-05-29] MEDS: METOCLOPRAMIDE HCL 10 MG/2 ML VIAL IV SCH ×4 (01:49→21:57)
[2020-05-29 04:31] LABS: BASOPHILS # (AUTO) 0.1 /CMM (0.0-0.2); BASOPHILS % (AUTO) 0.4 % (0.0-2.0); EOSINOPHILS % (AUTO) 6.1 % (0.0-6.0); HEMATOCRIT 22 % (33-45); HEMOGLOBIN 7.5 g/dL (11.5-14.8); LYMPHOCYTES # (AUTO) 5.5 /CMM (0.8-4.8); LYMPHOCYTES % (AUTO) 19.3 % (20.0-44.0); MEAN CORPUSCULAR HGB CONC 35 g/dl (31.0-36.0); MEAN CORPUSCULAR VOLUME 98 fL (82-100); MONOCYTES # (AUTO) 1.6 /CMM (0.1-1.30); MONOCYTES % (AUTO) 5.7 % (2.0-12.0); NEUTROPHILS # (AUTO) 19.4 /CMM (1.8-8.9); NEUTROPHILS % (AUTO) 68.5 % (43.0-81.0); RED BLOOD CELL COUNT(AUTO) 2.21 MIL/uL (4.0-5.2); WHITE BLOOD COUNT (AUTO) 28.2 K/uL (4.3-11.0)
[2020-05-29] MEDS: PHENYLEPHRINE 100 MG in IV NS 0.9% 240 ML IV PRN ×2 (04:33→16:16)
[2020-05-29 05:02] LABS: ALBUMIN 2.1 g/dL (3.4-5.0); BILIRUBIN,TOTAL 33.9 mg/dL (0.2-1.0); CREATININE 4.8 mg/dL (0.6-1.3); MAGNESIUM 1.8 mg/dL (1.8-2.4); PHOSPHORUS 1.2 mg/dL (2.5-4.9); TOTAL PROTEIN, SERUM 3.9 g/dL (6.4-8.2)
[2020-05-29 05:16] LABS: PLATELET COUNT (AUTO) 36 /CMM (150-450)
[2020-05-29 05:47] LABS: BAND % (MANUAL) 10 % (0.0-5.0)
[2020-05-29 05:48] LABS: LYMPHOCYTES % (MANUAL) 7 % (16-48); MONOCYTES % (MANUAL) 7 % (0-11.0); NEUTROPHILS % (MANUAL) 76 (42-76)
[2020-05-29] MEDS: DEXTROSE 50%-WATER 50 ML DISP.SYRIN IVP PRN (05:59)
--- NOTE | 2020-05-29 06:11 | NUR ---
RN NOTES INFORMED DR. WILLIS THAT PATIENT PLATELETS TODAY IS 36 WITH ORDER TO GAVE 1 BAG OF PLATELETS.. NOTED AND CARRIED OUT ORDER.
--- NOTE | 2020-05-29 07:04 | NUR ---
RN NOTES PATIENT REMAINED THE SAME. ETT AND VENT SETTING TOLERATED WELL, OBTUNDED. NO ACUTE RESPIRATORY DISTRESS. SR ON TELE MONITOR. FREQ. ORAL SUCTION NEEDED WITH BLOODY OUTPUT. AFEBRILE. BP CLOSELY MONITOR CONTINUE ON NEOSYNEPHRINE TITRATED ORDERED. IV SITE REMAINED INTACT AND PATENT. SANTOYO CATH WITH SMALL AMT.OF POLI COLOR URINE. BEDBATH DONE AND TOLERATED WELL. KEPT PT CLEAN AND DRY. ENDORSED CONTINUITY TO AM NURSE. TO FOLLOW UP JUNE FOR BLOOD TRANSFUSION CONSENT, PT HAS ORDER TO TRANSFUSE 1 UNIT OF PLATELET TODAY.
--- NOTE | 2020-05-29 07:45 | NUR ---
ICU/RN PT IS INTUBATED ON THE VENT AC MODE.SAT O2-99%.ON NEOSYNEPHRINE DRIP .AFEBRILE.PT IS NOT SEDATED.NOT RESPONSIVE AN ANY PAIN STIMULATION COMATOSE.NG TUBE DRAINING WITH BROWN GASTRIC SECRETIONS. RIGHT UPPER ARM PICC LINE ON THE RIGHT UPPER ARM.F/C DRAINING WITH TEA AND BILE COLOR URINE,RIGHT FEMORAL HD CATH.GENERALIZED EDEMA PRESENT.LABS REVIEW MD NOTIFIED .SUCTION PROVIDED REPOSITION FOR COMFORT.
[2020-05-29] MEDS: BLOOD SUGAR DIAGNOSTIC 1 EACH STRIP IN SCH ×4 (08:00→21:57)
[2020-05-29] MEDS: PANTOPRAZOLE 40 MG VIAL IV SCH ×2 (08:06→21:57)
[2020-05-29] MEDS: MEROPENEM 500 MG in IV NS 0.9% 50 ML IV SCH ×2 (08:06→18:30)
[2020-05-29 08:27] LABS: ABG BASE EXCESS 1.5 mmol/L; ABG OXYGEN SATURATION 97.8 % (92.0-98.5); ABG PCO2 31.4 mmHg (35.0-45.0); ABG PH 7.509 (7.350-7.450); ABG PO2 153.4 mmHg (75.0-100.0); AaDO2 95.7 mmHg; COHb 0.4 % (0.5-1.5); MetHb 0.3 % (0.0-1.5); O2Hb 97.1 % (94.0-97.0); PEEP,BG 5 cm H2O; SITE, ABG Left Radial; VT, ABG 450 mL
--- NOTE | 2020-05-29 09:05 | NUR ---
ICU/RN DUE MEDS ARE GIVEN ORDERED.CT HEAD DONE ORDERED.CONTINUE MONITORING.
[2020-05-29] MEDS: IV D5W 1,000 ML IV SCH (10:00)
[2020-05-29] MEDS ORDERED: IV MANNITOL 20% 250 ML IV ONE (10:00)
[2020-05-29] MEDS ORDERED: MANNITOL 12.5 GM/50 ML VIAL IV ONE (11:30)
[2020-05-29 11:54] LABS: ALBUMIN 1.8 g/dL (3.4-5.0); BILIRUBIN,TOTAL 32.6 mg/dL (0.2-1.0); CALCIUM, SERUM 7.2 mg/dL (8.5-10.1); CREATININE 5.2 mg/dL (0.6-1.3)
[2020-05-29] MEDS ORDERED: MANNITOL 25 GM in IV D5W 50 ML IV SCH (12:00)
--- NOTE | 2020-05-29 13:46 | NUR ---
ICU/RN PLT-26.1 UNIT PLT ORDERED AND STARTED.UNABLE TO PUT VITAL SIGNS ON TRANSFUSION FORM.SEE SHORT FORM OF VITAL SIGNS ON INTERVENTION.
[2020-05-29] MEDS ORDERED: POTASSIUM PHOSPHATE MM 15 MMOL in IV NS 0.9% 250 ML IV ONE (14:00)
[2020-05-29] MEDS ORDERED: FUROSEMIDE 40 MG/4 ML VIAL IV ONE (14:30)
--- NOTE | 2020-05-29 14:35 | NUR ---
ICU/RN 1 UNIT PLT TRANSFUSED.NO S/S OF REACTION NOTED.AFEBRILE. CONTINUE MONITORING.
--- NOTE | 2020-05-29 15:37 | NUR ---
ICU/RN PM CARE PROVIDED.DUE MEDS ARE GIVEN ORDERED.
[2020-05-29] MEDS: MANNITOL 25 GM in IV D5W 50 ML IV SCH (17:26)
[2020-05-29] MEDS ORDERED: POLYVINYL ALCOHOL 15 ML BOTTLE EACHEYE PRN (18:00)
[2020-05-29] MEDS: LACTULOSE 10 G/15 ML UDC (PYXIS) PO SCH (18:29)
--- NOTE | 2020-05-29 19:35 | NUR ---
RN NOTES RECEIVED PATIENT ORALLY INTUBATED WITH ETT W/ ETT 7.5/22 CM AT LIPLINE CONNECTED TO VENT SETTING MODE AC 24 TV 450 FIO2 40% AND PEEP 5. NO ACUTE RESPIRATORY DISTRESS. OBTUNDED, NOT FOLLOWING COMMAND NO GAG REFLEX, SR ON TELE MONITOR. PRESENT W/ LEFT NARES NGT ON LIS PATENCY CHECKED. PATIENT IV SITE ON TANIA PICC LINE WITH NEOSYNEPHRINE TITRATED PROTOCOL ORDER AND RUNNING WITH D5 W @ 50 ML/HR INTACT AND PATENT / PATIENT HAS RIGHT FEMORAL HD CATH WITH CLEAN DRESSING . SANTOYO CATH DRAINED VIA GRAVITY WITH POLI COLOR URINE. KEPT PT CLEAN AND DRY. WILL CLOSELY MONITOR PATIENT .
[2020-05-30] VITALS (92 sets, daily range): BP systolic 63–168; BP diastolic 23–105
[2020-05-30] MEDS: MANNITOL 25 GM in IV D5W 50 ML IV SCH ×3 (00:24→13:15)
[2020-05-30] MEDS: LACTULOSE 10 G/15 ML UDC (PYXIS) PO SCH ×5 (00:31→23:54)
[2020-05-30] MEDS: IV D5W 1,000 ML IV SCH ×2 (04:54→23:54)
[2020-05-30] MEDS: METOCLOPRAMIDE HCL 10 MG/2 ML VIAL IV SCH ×3 (04:54→21:47)
[2020-05-30 04:56] LABS: BASOPHILS # (AUTO) 0.1 /CMM (0.0-0.2); BASOPHILS % (AUTO) 0.3 % (0.0-2.0); LYMPHOCYTES # (AUTO) 9.1 /CMM (0.8-4.8); LYMPHOCYTES % (AUTO) 30.3 % (20.0-44.0); MEAN CORPUSCULAR HGB CONC 35 g/dl (31.0-36.0); MEAN CORPUSCULAR VOLUME 98 fL (82-100); MONOCYTES # (AUTO) 1.2 /CMM (0.1-1.30); NEUTROPHILS # (AUTO) 18.7 /CMM (1.8-8.9); NEUTROPHILS % (AUTO) 62.4 % (43.0-81.0); PLATELET COUNT (AUTO) 81 /CMM (150-450); RED BLOOD CELL COUNT(AUTO) 2.08 MIL/uL (4.0-5.2)
[2020-05-30 05:06] LABS: MAGNESIUM 1.9 mg/dL (1.8-2.4); PHOSPHORUS 1.7 mg/dL (2.5-4.9)
[2020-05-30 05:08] LABS: HEMATOCRIT 20 % (33-45)
[2020-05-30 06:03] LABS: BAND % (MANUAL) 9 % (0.0-5.0); EOSINOPHILS % (MANUAL) 3 % (0-4); LYMPHOCYTES % (MANUAL) 20 % (16-48); MONOCYTES % (MANUAL) 2 % (0-11.0); NEUTROPHILS % (MANUAL) 65 (42-76)
[2020-05-30 06:07] LABS: *SPE A/G RATIO 1.6 (0.7-1.7); *SPE ALBUMIN 2.7 g/dL (2.9-4.4); *SPE ALPHA-1-GLOBULIN 0.2 g/dL (0.0-0.4); *SPE ALPHA-2-GLOBULIN 0.3 g/dL (0.4-1.0); *SPE BETA GLOBULIN 0.4 g/dL (0.7-1.3); *SPE GLOBULIN, TOTAL 1.7 g/dL (2.2-3.9); *SPE M-SPIKE Not Observed g/dL (Not Observed); *SPEGAMMA GLOBULIN 0.8 g/dL (0.4-1.8)
--- NOTE | 2020-05-30 06:53 | NUR ---
RN NOTES PATIENT CONTINUE WITH ETT, VENT SETTING TOLERATED WELL. AFEBRILE. PATIENT OBTUNDED. NO SEDATION NEEDED. MINIMAL ORAL BLEEDING STILL NOTED. NO SIGNIFICANT CHANGES THROUGHOUT THE SHIFT. CONTINUE ON PRESSORS NEOSYNEPHRINE TITRATED ORDERED. NGT ON LIS WITH LIGHT BROWNISH COLOR OUTPUT. IV SITE ON TANIA PICC LINE INTACT AND PATENT RT. FEMORAL HD INTACT WITH CLEAN DRESSING. KEPT PT CLEAN AND DRY. WILL ENDORSED CONTINUITY OF CARE TO AM NURSE.
--- NOTE | 2020-05-30 07:20 | NUR ---
RN INITIAL NOTES RECEIVED PT INTUBATED, ON VENT. NO RESPIRATORY DISTRESS NOTED. NO SOB NOTED. NO SIGNS OF PAIN NOTED. NGT IN PLACE, CLAMPED. TANIA PICC IN PLACE. IVF INFUSING. ON AYANA AT 1.2MCG/KG/MIN. RIGHT FEMORAL HD CATH IN PLACE. SANTOYO IN PLACE. BLE ELEVATED. WILL CLOSELY MONITOR
[2020-05-30] MEDS: BLOOD SUGAR DIAGNOSTIC 1 EACH STRIP IN SCH ×4 (07:59→22:04)
[2020-05-30] MEDS: PANTOPRAZOLE 40 MG VIAL IV SCH ×2 (08:01→21:47)
[2020-05-30] MEDS: MEROPENEM 500 MG in IV NS 0.9% 50 ML IV SCH ×2 (08:01→18:50)
--- NOTE | 2020-05-30 08:06 | NUR ---
WOUND CARE CONSULT: PT SEEN FOR SKIN ASSESSMENT. SKIN IS INTACT. PT IS INTUBATED AND ON CELIO ISOFLEX LOW AIRLOSS BED. ALL SKIN PROTECTION MEASURES IN PLACE AND DISCUSSED WITH NURSING STAFF. WILL SEE PRDella LAYNE IN AGREEMENT WITH PLAN OF CARE.
[2020-05-30] MEDS: PHENYLEPHRINE 100 MG in IV NS 0.9% 240 ML IV PRN ×2 (08:12→22:48)
[2020-05-30 08:50] LABS: ABG BASE EXCESS 1.3 mmol/L; ABG PCO2 26.8 mmHg (35.0-45.0); ABG PO2 83.4 mmHg (75.0-100.0); COHb 1.8 % (0.5-1.5); MetHb 0.3 % (0.0-1.5); PEEP,BG 5 cm H2O; SITE, ABG Left Brachial; VT, ABG 450 mL
[2020-05-30] MEDS ORDERED: FUROSEMIDE 100 MG/10 ML VIAL IV ONE (10:30)
--- NOTE | 2020-05-30 12:00 | NUR ---
RN NOTES [address] ALAS. NO SIGNIFICANT CHANGES NOTED OVERNIGHT. NO ORDER MADE 1030 SEEN BY MEGHA SCHNEIDER NP. AWARE OF PT'S CURRENT STATUS, LAB VALUES AND CXR RESULT. SPOKE WITH OVER THE PHONE PLAN OF CARE. WILL ARRANGE FAMILY TO VISIT PT. WILL MONITOR 1200 PT UNABLE TO TOLERATE HEMODIALYSIS DUE TO HYPOTENSION. ON AYANA AT 3MC/KG/MIN. DR MOLINA NOTIFIED. WILL CLOSELY MONITOR
[2020-05-30 13:37] LABS: CALCIUM, SERUM 7.6 mg/dL (8.5-10.1); CREATININE 3.7 mg/dL (0.6-1.3)
--- NOTE | 2020-05-30 16:08 | NUR ---
8:15am Dobby Looms Pegger consult requested by Veronika Nguyen DNP for substance abuse. Per MD notes, patient is a 49-year-old female who presented to [facility] on 05/24 for nausea and vomiting. Patient is currently intubated (05/30/2020), and therefore this SW is unable to communicate with this patient at this time. This SW to contact family members, per face sheet Laurent Kramer . This SW to remain available for all needs regarding this patient.
[2020-05-30] MEDS: IV MANNITOL 20% 250 ML IV SCH ×2 (17:06→23:55)
[2020-05-30] MEDS ORDERED: POTASSIUM PHOSPHATE MM 15 MMOL in IV NS 0.9% 250 ML IV SCH (18:00)
--- NOTE | 2020-05-30 18:47 | NUR ---
RN CLOSING NOTES PT REMAINS INTUBATED, ON VENT. NO RESPIRATORY DISTRESS. NO SIGNS OF PAIN. ON AYANA AT 1MCG/KG/MIN, TITRATED ACCORDINGLY. IVF INFUSING. KEPT CLEAN AND DRY. KEPT COMFORTABLE. BLE ELEVATED. WILL ENDORSE FOR CONTINUITY OF CARE.
--- NOTE | 2020-05-30 19:15 | NUR ---
RN OPENING NOTES: PATIENT IN BED, INTUBATED, TOLERATING CURRENT VENT SETTINGS. UNLABORED BREATHING. NO S/S OF PAIN. PATIENT HAS TANIA PICC LINE AND LEFT FA G20; C/D/I AND FLUSHING WELL. ON D5W AT 50 MLS/HR. ON AYANA DRIP AT 1 MCG/KG/MIN; WILL TITRATE PER PROTOCOL. PATIENT HAS NGT VIA LEFT NARE CONNECTED TO LOW INTERMITTENT SUCTION. RIGHT FEMORAL HD CATH CLEAN AND INTACT. SAFETY PRECAUTIONS IMPLEMENTED. BED LOCKED, LOW POSITION, UPPER BILATERAL SIDE RAILS X 2 UP. HOB AT 45 DEGREES. CALL LIGHT WITHIN REACH. WILL CONT. TO MONITOR.
--- NOTE | 2020-05-30 19:30 | NUR ---
RN NOTE: PATIENT UNABLE TO GET TEMP VIA AXILLA. PATIENT IS COOL TO TOUCH. WARM BLANKETS PLACED OVER PATIENT. WILL CONT. TO MONITOR. AT 2000, CHECKED PATIENT'S TEMP 92F. BEAR HUGGER IN PLACE. CHARGE NURSE AWARE. WILL CONT. TO MONITOR. AT 0400, LATEST TEMP CHECKED VIA TYMPANIC 99F. WILL CONT. TO MONITOR.
[2020-05-31] VITALS (92 sets, daily range): BP systolic 75–149; BP diastolic 41–88
[2020-05-31 04:12] LABS: BASOPHILS # (AUTO) 0.2 /CMM (0.0-0.2); BASOPHILS % (AUTO) 0.7 % (0.0-2.0); EOSINOPHILS % (AUTO) 3.2 % (0.0-6.0); LYMPHOCYTES # (AUTO) 7.1 /CMM (0.8-4.8); LYMPHOCYTES % (AUTO) 20.8 % (20.0-44.0); MEAN CORPUSCULAR HGB CONC 34 g/dl (31.0-36.0); MEAN CORPUSCULAR VOLUME 98 fL (82-100); MONOCYTES # (AUTO) 4.7 /CMM (0.1-1.30); MONOCYTES % (AUTO) 13.5 % (2.0-12.0); NEUTROPHILS # (AUTO) 21.3 /CMM (1.8-8.9); NEUTROPHILS % (AUTO) 61.8 % (43.0-81.0); PLATELET COUNT (AUTO) 55 /CMM (150-450); RED BLOOD CELL COUNT(AUTO) 2.05 MIL/uL (4.0-5.2)
[2020-05-31 04:23] LABS: WHITE BLOOD COUNT (AUTO) 34.4 K/uL (4.3-11.0)
[2020-05-31 04:24] LABS: HEMATOCRIT 20 % (33-45); HEMOGLOBIN 6.8 g/dL (11.5-14.8)
[2020-05-31 05:06] LABS: ALBUMIN 1.6 g/dL (3.4-5.0); BILIRUBIN,TOTAL 29.2 mg/dL (0.2-1.0); CALCIUM, SERUM 7.2 mg/dL (8.5-10.1); CREATININE 5.2 mg/dL (0.6-1.3); MAGNESIUM 1.9 mg/dL (1.8-2.4); PHOSPHORUS 2.7 mg/dL (2.5-4.9); POTASSIUM 3.3 mmol/L (3.5-5.1); TOTAL PROTEIN, SERUM 4.6 g/dL (6.4-8.2)
[2020-05-31] MEDS: LACTULOSE 10 G/15 ML UDC (PYXIS) PO SCH ×3 (05:16→18:20)
[2020-05-31] MEDS: METOCLOPRAMIDE HCL 10 MG/2 ML VIAL IV SCH ×3 (05:16→22:34)
[2020-05-31] MEDS: IV MANNITOL 20% 250 ML IV SCH ×3 (05:42→18:20)
[2020-05-31 06:02] LABS: EOSINOPHILS % (MANUAL) 2 % (0-4); LYMPHOCYTES % (MANUAL) 15 % (16-48); MONOCYTES % (MANUAL) 8 % (0-11.0); NEUTROPHILS % (MANUAL) 75 (42-76)
--- NOTE | 2020-05-31 07:05 | NUR ---
RN CLOSING NOTES: CRITICAL LAB RESULTS RELAYED TO DR. TEMPLETON; WBC 34.4, HGB 6.8, K+ 3.3. RECEIVED ORDER TO TRANSFUSE 1 UNIT OF PRBC AND REPLACE K+. PATIENT ALREADY ON IV MERREM. DR. TEMPLETON AWARE. PATIENT HAS NO SIGNS OF DISTRESS. ENDORSED TO AM RN FOR CONTINUITY OF CARE.
--- NOTE | 2020-05-31 07:49 | NUR ---
RT RECEIVED PT INTUBATED, ETT 7.5 MARKED AT 23CM LIP. BANKING SERVICES ADVISOR IS DONE AND ETT IS SECURE WITH ANCHORFAST. VENT ALARMS CHECKED AND AUDIBLE. VENT PLUGGED IN RED OUTLET. PT TOLERATING SETTINGS WELL. NO SOB OR RESP DISTRESS NOTED. SX W/ MOD THK WHITE/YELLOW SECRETIONS. WILL CONTINUE TO MONITOR T/O SHIFT.
[2020-05-31] MEDS: BLOOD SUGAR DIAGNOSTIC 1 EACH STRIP IN SCH ×4 (08:24→22:53)
[2020-05-31] MEDS: POTASSIUM CL. PREMIX PERIPHER. 50 ML IV SCH ×2 (08:27→09:44)
[2020-05-31] MEDS: MEROPENEM 500 MG in IV NS 0.9% 50 ML IV SCH ×2 (08:27→22:31)
[2020-05-31] MEDS: PANTOPRAZOLE 40 MG VIAL IV SCH ×2 (08:27→22:31)
--- NOTE | 2020-05-31 09:44 | NUR ---
HAND COLLATOR OPENING NOTES: RECEIVED PT IN BED, COMATOSE, CHECKED EYES PUPILS DILATED, FIXED AND NONREACTIVE TO LIGHT. SR, PT IS ON T/V SATURATING WELL, BILATERAL UPPER EXTREMITIES EDEMA NON PITTING. NG TO LIS, F/C OK OUTPUT. VITALS WNL. ALL SAFETY MEASURES MAINTAINED, CALL LIGHT WITHIN REACH WILL CONTINUE TO MONITOR.
[2020-05-31] MEDS: DEXTROSE 50%-WATER 50 ML DISP.SYRIN IVP PRN (12:35)
--- NOTE | 2020-05-31 13:30 | NUR ---
ENTRY LEVEL WEB DEVELOPER NOTES: PT BLOOD GLUCOSE WAS 56 DEXTROSE WAS ADMIN BLOOD SUGAR WENT UP TO 117. WILL CONTINUE TO MONITOR
--- NOTE | 2020-05-31 13:34 | NUR ---
TEXTILE MACHINE MAINTENANCE MECHANIC NOTES: 1 UNIT BLOOD WAS TRANSFUSED, VITALS WNL, NO REACTIONS.
[2020-05-31] MEDS: Sodium Chloride 154 MEQ in IV 10% DEXTROSE 1,000 ML IV PRN ×2 (13:54→22:35)
[2020-05-31] MEDS: PHENYLEPHRINE 100 MG in IV NS 0.9% 240 ML IV PRN (13:54)
--- NOTE | 2020-05-31 18:00 | NUR ---
.NET PROGRAMMER CLOSING NOTES: PT IN BED NONE RESPONSIVE, NO ACUTE CHANGES DURING THE SHIFT. PTS TEMP WAS LOW MEASURES WERE TAKEN TO BRING IT UP. NO RESPIRATORY DISTRESS, NO SIGNS OF ANY PAIN. PT ON AYANA BP WAS MAINTAINED WNL. IV SITES INTACT, CLEAN FLUSHED WELL. NO NEURO CHANGES SINCE THE MORNING. SAFETY AND COMFORT MEASURES MAINTAINED CALL LIGHT WITHIN REACH WILL ENDORSE TO PM NURSE FOR CONTINUATION OF CARE.
--- NOTE | 2020-05-31 20:07 | NUR ---
[employer] [place] ATTORNEY. INITIAL ASSESSMENT. RECEIVED THE PT REST ON E BED. ORALLY INTUBATED. PT IS NOT RESPONDING PAIN FULL STIMULI. NO GAG REFLEX. PUPIL FIXED AND DILATED. ETT 7.5,LIP 22AC 24,TV 450,FIO2 40%,PEEP 5. SAT 99%. NO ACUTE DISTRESS NOTED. CENTRAL SUPPLY TECHNICIAN SUPERVISOR SHOWING NSR. IV RT UPPER ARM PICC LINE IVF D10 NS 60 ML/H,AYANA 1.5MCG/KG/MIN,RT FEMORAL HD CATH. FC PATENT, LT NARE NGT LOW INTERMITTENT SUCTION.HOB ELEVATED. GENERALIZED EDEMA 4+. BAGGER HUGGER ON. WILL CONTINUE TO MONITOR VITALS.
[2020-05-31] MEDS ORDERED: IV NS 0.9% 250 ML IV PRN (23:00)
[2020-06-01] VITALS (62 sets, daily range): BP systolic 74–180; BP diastolic 48–102
[2020-06-01] MEDS: LACTULOSE 10 G/15 ML UDC (PYXIS) PO SCH ×5 (00:29→23:01)
[2020-06-01] MEDS: IV MANNITOL 20% 250 ML IV SCH ×5 (00:29→23:01)
[2020-06-01 04:18] LABS: BASOPHILS # (AUTO) 0.1 /CMM (0.0-0.2); BASOPHILS % (AUTO) 0.3 % (0.0-2.0); HEMATOCRIT 23 % (33-45); HEMOGLOBIN 7.8 g/dL (11.5-14.8); LYMPHOCYTES # (AUTO) 5.1 /CMM (0.8-4.8); LYMPHOCYTES % (AUTO) 15.4 % (20.0-44.0); MEAN CORPUSCULAR HGB CONC 34 g/dl (31.0-36.0); MEAN CORPUSCULAR VOLUME 95 fL (82-100); NEUTROPHILS # (AUTO) 25.7 /CMM (1.8-8.9); NEUTROPHILS % (AUTO) 77.3 % (43.0-81.0); RED BLOOD CELL COUNT(AUTO) 2.46 MIL/uL (4.0-5.2)
[2020-06-01 04:39] LABS: PLATELET COUNT (AUTO) 36 /CMM (150-450); WHITE BLOOD COUNT (AUTO) 33.2 K/uL (4.3-11.0)
[2020-06-01 04:51] LABS: BILIRUBIN,TOTAL 28.7 mg/dL (0.2-1.0); CALCIUM, SERUM 7.4 mg/dL (8.5-10.1); CREATININE 6.1 mg/dL (0.6-1.3); MAGNESIUM 1.9 mg/dL (1.8-2.4); PHOSPHORUS 2.6 mg/dL (2.5-4.9); POTASSIUM 3.9 mmol/L (3.5-5.1); TOTAL PROTEIN, SERUM 4.6 g/dL (6.4-8.2)
[2020-06-01 05:00] LABS: ALBUMIN 1.4 g/dL (3.4-5.0)
[2020-06-01 05:36] LABS: BAND % (MANUAL) 3 % (0.0-5.0); EOSINOPHILS % (MANUAL) 2 % (0-4); LYMPHOCYTES % (MANUAL) 9 % (16-48); MONOCYTES % (MANUAL) 3 % (0-11.0); NEUTROPHILS % (MANUAL) 83 (42-76)
--- NOTE | 2020-06-01 05:39 | NUR ---
sericulturist. am care. oral care, bed bath given. linen changed, remaining same vent setting tolerated well. sat 99%. no acute distress noted. laboratory monitor showing nsr. iv rt upper arm picc line ivf d10ns 60 ml/h matilde 1mcg/kg/min. hob elevated. ngt low intermittent suction. abdomen distended. afebrile. will continue to monitor vitals.
[2020-06-01] MEDS: METOCLOPRAMIDE HCL 10 MG/2 ML VIAL IV SCH ×3 (05:47→20:04)
[2020-06-01] MEDS: BLOOD SUGAR DIAGNOSTIC 1 EACH STRIP IN SCH ×4 (07:46→21:28)
[2020-06-01] MEDS: MEROPENEM 500 MG in IV NS 0.9% 50 ML IV SCH ×2 (07:47→19:37)
[2020-06-01] MEDS: PANTOPRAZOLE 40 MG VIAL IV SCH ×2 (08:35→20:04)
[2020-06-01] MEDS: PHENYLEPHRINE 100 MG in IV NS 0.9% 240 ML IV PRN (11:41)
--- NOTE | 2020-06-01 12:16 | NUR ---
RN NOTE SPOKE TO DR. ELIZABETH, PER MD RECOMMENDED TO START TUBE FEEDING THROUGH NG TUBE IF PATIENT REMAINS FULL CODE, RELAYED THE INFORMATION TO HOSPITALIST. SAFETY MAINTAINED, CALL LIGHT WITHIN REACH, WILL CONTINUE TO MONITOR CLOSELY.
[2020-06-01] MEDS ORDERED: ALBUMIN 25% 25 GM in PREMIX 1 EA IV PRN (14:30)
--- NOTE | 2020-06-01 16:00 | NUR ---
2:00pm This SW received a call back from patients Anmol . Per MD notes, Per MD notes, patient is a 49-year-old female who presented to [facility] on 05/24 for nausea and vomiting. Per MD note, patient is currently in a coma with severe cerebral edema, fulminant liver failure from acute alcohol intoxication, acute respiratory failure with probable secondary aspiration and poor prognosis for meaningful neurological recovery. Per Anmol, Bita is athletic, was a certified personal chef and a songwriter. Patient and Anmol have been together for 32 years, currently they have 3 children (ages 30, 27, and 24). Patient and Anmol worked in the music industry and per Anmol, he travels a lot and leaves patient alone at home often. Patient was diagnosed with thyroid and fibroid issues many years ago and patient approached this holistically, refused to take medications. Per Anmol, patient struggled with depression especially over the last few months but was not diagnosed by a physician. Anmol reports that patients mother 3 weeks ago, patients sister dies 8 months ago, patient has lost 10 family members/friends due to COVID, and patients best friend due to COVID last week. Per Anmol, patient was never a heavy drinker, patients choice of drink was wine. Per Anmol, he reports that the patient drank 5 bottles of wine per week these last 2 weeks. Anmol reports that he and the patient smoke marijuana in which they go to a dispensary to obtain. Anmol reports that the patient stopped smoking in 2002. Per Anmol, he was on a trip to [place] when the patient tried Cocaine for the first time two weeks ago. Per patients report to Anmol, patient did not feel the effects of cocaine, only felt the alcohol she had been drinking with her friend. When patient shared this information with Anmol, patient mentioned that she wanted to go to therapy. Per Anmol I cant get these images of my mom out of my head, per Anmol research was being conducted to find a therapist for the patient. About 2 weeks ago, Anmol found the patient in bed drinking rum, a day after patient reported feeling nauseas. Patient did not want to go to the hospital this day, patients plan was to sleep it off. Until Anmol found patient lying on bedroom floor on 05/24 (when patient was brought by ambulance to [facility]. Anmol informed this automobile and property underwriter that he was told that the patient will not be at the top of the Organ Donor list per the substances found in the patients system. Anmol became emotional and began to cry during this conversation. Anmol reports that the patient is a beautiful person and that he took a day off from visiting the patient to take care of himself. This SW reaffirmed this decision that Anmol made. Anmol expressed gratitude toward this automobile and property underwriter as he does not know what is to come. This automobile and property underwriter informed Anmol that this automobile and property underwriter remains available for all needs for him and his family. Anmol informed this SW that he will be visiting patient today 06/01. This SW remains available for all needs regarding this patient
[2020-06-01] MEDS: Sodium Chloride 154 MEQ in IV 10% DEXTROSE 1,000 ML IV PRN (17:12)
--- NOTE | 2020-06-01 19:18 | NUR ---
RN NOTE ENDORSED PATIENT TO PM NURSE FOR CONTINUATION OF CARE. NO ACUTE CHANGES TO PATIENT CONDITION DURING MY SHIFT. ENDORSED TO PM NURSE TO CARRY OUT DR ALAS ORDER, APNEA TEST IN THE MORNING, REDUCE RESPIRATORY RATE TP 14 AND DO ABG IN THE AM. FAY WILL FOLLOW UP. EEG RESULTS SHOWED NO BRAIN ACTIVITY. PATIENT KEPT CLEAN AND DRY, SAFETY MAINTAINED, CALL LIGHT WITHIN REACH, ENDORSED TO PM NURSE FOR ERLINDA.
--- NOTE | 2020-06-01 20:11 | NUR ---
RT NOTE Pt rec'd orally intubated via ETT #7.5 secured @ 23cm at the lipline. Pt on [facility] [facility] vent on AC mode settings as charted. Pt shows no signs of resp distress or sob. Pt sx'd for thick small amt of brown secretions. Alarms are set and audible. Vent plugged into red outlet. ambu bag bedside. will continue to monitor closely. Addendum: 06/01/20 at 2015 by ED SANTOS RT Amended: Links added.
[2020-06-02] VITALS (43 sets, daily range): BP systolic 76–136; BP diastolic 35–80
[2020-06-02] MEDS: METOCLOPRAMIDE HCL 10 MG/2 ML VIAL IV SCH ×3 (04:14→21:04)
[2020-06-02 04:35] LABS: BASOPHILS % (AUTO) 0.2 % (0.0-2.0); EOSINOPHILS % (AUTO) 4.5 % (0.0-6.0); HEMATOCRIT 21 % (33-45); LYMPHOCYTES # (AUTO) 3.7 /CMM (0.8-4.8); LYMPHOCYTES % (AUTO) 15.6 % (20.0-44.0); MEAN CORPUSCULAR HGB CONC 33 g/dl (31.0-36.0); MEAN CORPUSCULAR VOLUME 98 fL (82-100); MONOCYTES # (AUTO) 0.9 /CMM (0.1-1.30); NEUTROPHILS # (AUTO) 18.1 /CMM (1.8-8.9); NEUTROPHILS % (AUTO) 75.7 % (43.0-81.0); RED BLOOD CELL COUNT(AUTO) 2.11 MIL/uL (4.0-5.2); WHITE BLOOD COUNT (AUTO) 23.8 K/uL (4.3-11.0)
[2020-06-02 05:03] LABS: HEMOGLOBIN 6.8 g/dL (11.5-14.8); PLATELET COUNT (AUTO) 17 /CMM (150-450)
[2020-06-02] MEDS: LACTULOSE 10 G/15 ML UDC (PYXIS) PO SCH ×4 (05:24→23:14)
[2020-06-02] MEDS: IV MANNITOL 20% 250 ML IV SCH (05:24)
--- NOTE | 2020-06-02 05:37 | NUR ---
RN NOTE RECEIVED ALERT FOR CRITICAL LAB VALUE HGB 6.8 AND PLATELET 17. PAGED [facility] FOR DOCTOR HOSE FINISHER. ALSO RECEIVED ALERT FOR BLOOD GLUCOSE 480. BLOOD GLUCOSE TO BE REDRAWN.
[2020-06-02 05:43] LABS: BAND % (MANUAL) 4 % (0.0-5.0); EOSINOPHILS % (MANUAL) 2 % (0-4); LYMPHOCYTES % (MANUAL) 26 % (16-48); MONOCYTES % (MANUAL) 1 % (0-11.0); NEUTROPHILS % (MANUAL) 67 (42-76)
--- NOTE | 2020-06-02 05:48 | NUR ---
RN NOTE SPOKE TO ESSENCE TRUJILLO DNP WHO GAVE NEW ORDERS FOR 1 UNIT OF PRBCs AND 1 UNIT OF PLATELETS. NOTED THAT PATIENT ALREADY HAS CONSENT FOR BLOOD TRANSFUSION. ORDER NOTED AND CARRIED OUT.
[2020-06-02 06:03] LABS: CALCIUM, SERUM 7.7 mg/dL (8.5-10.1); CREATININE 4.6 mg/dL (0.6-1.3); MAGNESIUM 1.9 mg/dL (1.8-2.4); PHOSPHORUS 2.8 mg/dL (2.5-4.9)
--- NOTE | 2020-06-02 07:07 | NUR ---
RN CLOSING NOTE AWAITING BLOOD PRODUCTS FROM LAB. VITAL SIGNS STABLE, TOLERATING VENT SETTINGS. SAFETY MEASURES IN PLACE, PT TO HAVE APNEA TEST TODAY PER RESPIRATORY, ENDORSED TO MORNING RN FOR CONTINUATION OF CARE.
[2020-06-02] MEDS: BLOOD SUGAR DIAGNOSTIC 1 EACH STRIP IN SCH ×4 (07:49→21:12)
[2020-06-02] MEDS: MEROPENEM 500 MG in IV NS 0.9% 50 ML IV SCH ×2 (07:49→20:00)
--- NOTE | 2020-06-02 08:00 | NUR ---
RN OPENING NOTES RECEIVED PATIENT OBTUNDED IN BED, GCS IS 3, PATIENT DOES NOT RESPOND TO ANY STIMULI. ON MECHANICAL VENTILATOR WITH SETTINGS ORDERED, PER MD ORDER, WILL DECREASE RESPIRATORY RATE ON THE VENT TO 14 TO PERFORM APNEA TEST, 1 UNIT PRBC AND 1 UNIT PLASMA WAS ORDERED BY FREIGHT ELEVATOR ERECTOR MD, WILL TRANSFUSE SOON AVAILABLE. VITAL SIGNS ARE STABLE, ON AYANA DRIP RUNNING ORDERED, TITRATED PER PROTOCOL, BP MAINTAINED ORDERED. PICC LINE IS INTACT, PATENT AND FLUSHED WELL. SANTOYO DRAINING URINE BY GRAVITY. PATIENT SAFETY MAINTAINED, CALL LIGHT WITHIN REACH, WILL CONTINUE TO MONITOR CLOSELY.
[2020-06-02 08:18] LABS: ABG OXYGEN SATURATION 96.2 % (92.0-98.5); ABG PCO2 35.2 mmHg (35.0-45.0); ABG PH 7.465 (7.350-7.450); ABG PO2 83.7 mmHg (75.0-100.0); COHb 2.7 % (0.5-1.5); O2Hb 93.6 % (94.0-97.0); SITE, ABG Right Radial; VENT MODE, BG AC 14 450 +5 40%
[2020-06-02] MEDS: PANTOPRAZOLE 40 MG VIAL IV SCH ×2 (08:31→21:04)
[2020-06-02 10:10] LABS: ABG OXYGEN SATURATION 94.3 % (92.0-98.5); ABG PH 7.255 (7.350-7.450); ABG PO2 90.7 mmHg (75.0-100.0); AaDO2 130.1 mmHg; COHb 2.1 % (0.5-1.5); MetHb 0.3 % (0.0-1.5); SITE, ABG Left Radial; VENT MODE, BG T-TUBE
[2020-06-02] MEDS: Sodium Chloride 154 MEQ in IV 10% DEXTROSE 1,000 ML IV PRN (11:37)
[2020-06-02] MEDS: DEXTROSE 50%-WATER 50 ML DISP.SYRIN IVP PRN (11:47)
--- NOTE | 2020-06-02 14:00 | NUR ---
RN NOTE CLARIFIED WITH DR. ALAS AND MEGHA REGARDING CONTACTING [facility], PER MD ORDERS, INSTRUCTED TO HOLD OFF UNTIL TOMORROW MORNING DUE TO FAMILY INVOLVEMENT. PATIENT GCS IS 3, MD IS AWARE. APNEA TEST CAME BACK POSITIVE, EEG SHOWED NO BRAIN ACTIVITY. SAFETY WAS MAINTAINED, CALL LIGHT WITHIN REACH, WILL CONTINUE TO MONITOR CLOSELY.
--- NOTE | 2020-06-02 19:20 | NUR ---
RN CLOSING NOTES NO ACUTE CHANGES TO PATIENT CONDITION DURING MY SHIFT, ALL PATIENT NEEDS MET, SCHEDULED MEDICATIONS GIVEN ON TIME, TRANSFUSED 1 UNIT PRBC, PATIENT TOLERATED WELL, NO REACTION NOTED, PLATELETS ARE STILL PENDING, CALLED LAB, WILL CALL BACK WHEN IT IS READY. VITAL SIGNS ARE STABLE. SAFETY MAINTAINED, CALL LIGHT WITHIN REACH, ENDORSED TO PM NURSE FOR ERLINDA.
--- NOTE | 2020-06-02 20:31 | NUR ---
DIVE SUPERVISOR NOTE SPOKE TO LUDIVINA FROM BLOOD BANK ABOUT PLATELETS AND WAS TOLD '"PRODUCT HASN'T ARRIVED YET". WILL FOLLOWUP.
[2020-06-02] MEDS: PHENYLEPHRINE 100 MG in IV NS 0.9% 240 ML IV PRN (21:18)
[2020-06-02] MEDS ORDERED: CEFTRIAXONE 1 G VIAL ONE (21:32)
[2020-06-03] VITALS (27 sets, daily range): BP systolic 84–164; BP diastolic 50–104
[2020-06-03] MEDS: Sodium Chloride 154 MEQ in IV 10% DEXTROSE 1,000 ML IV PRN ×2 (03:50→08:28)
[2020-06-03] MEDS: LACTULOSE 10 G/15 ML UDC (PYXIS) PO SCH ×2 (05:07→12:38)
[2020-06-03] MEDS: METOCLOPRAMIDE HCL 10 MG/2 ML VIAL IV SCH ×2 (05:07→12:38)
--- NOTE | 2020-06-03 06:23 | NUR ---
RN NOTE SPOKE TO RAMIREZ FROM BLOOD BANK WHO STATES THAT PLATELETS HAVE NOT ARRIVED YET. WILL ENDORSE TO MORNING SHIFT TO FOLLOW UP.
--- NOTE | 2020-06-03 06:33 | NUR ---
ELECTRIC POWER LINE EXAMINER CLOSING NOTES PT IS OBTUNDED IN BED WITH NO CHANGE IN NEURO STATUS SINCE PREVIOUS SHIFT. TOLERATING VENT SETTINGS WELL. VITALS WNL. NSR ON MONITOR. LNGT CONNECTED TO INTERMITTENT SUCTION AND NO GASTRIC OUTPUT NOTED SINCE 2AM. SANTOYO CATHETER IS PATENT AND IN PLACE DRAINING NEON YELLOW. SHES CURRENTLY ON AYANA AT 1MCG/KG/MIN. ALSO ON NACL 154MEQ IN D10 AT 60ML/HR ORDERED VIA TANIA PICC LINE WITH NO COMPLICATIONS AT SIGHT. BEAR HUGGER IN PLACE. ALL NEEDS MET AND ATTENDED TO. SAFETY MEASURES IN PLACE. OTHERWISE WILL ENDORSE TO MORNING SHIFT.
--- NOTE | 2020-06-03 07:40 | NUR ---
ICU/RN PT IS INTUBATED ON THE VENT AC MODE,FIO2-40%.SAT O2-100%.ON NEOSYNEPHRINE DRIP.NON RESPONSIVE.COMATOSE. NG TUBE CONNECTED TO LOW INTERMEDIATE SUCTION ,NPO.F/C DRAINING WITH YELLOW URINE.GENERALIZED EDEMA PRESENT. HAS NO BRAIN ACTIVITIES ,APNEA TEST -POSITIVE .WAITING FOR THE FAMILY MEETING .
--- NOTE | 2020-06-03 08:05 | NUR ---
RT RECEIVED PT ORALLY INTUBATED W/ 7.5 ETT MARKED @ 23CM LIP LINE. ICU NURSE DONE AND TUBE IS SECURED W/ ANCHOR FAST. VENT ALARMS CHECKED AND AUDIBLE. VENT IS PLUGGED IN RED OUTLET. RASHI B/S. SX WITH MOD THK WHITE SECRETIONS. PT TOLERATING SETTINGS WELL. AMBU BAG NOTED HOB. NO SOB OR RESP DISTRESS NOTED. WILL CONTINUE TO MONITOR T/O SHIFT.
[2020-06-03] MEDS: BLOOD SUGAR DIAGNOSTIC 1 EACH STRIP IN SCH ×2 (08:13→11:18)
[2020-06-03] MEDS: MEROPENEM 500 MG in IV NS 0.9% 50 ML IV SCH (08:16)
[2020-06-03] MEDS: PANTOPRAZOLE 40 MG VIAL IV SCH (08:16)
[2020-06-03] MEDS: DEXTROSE 50%-WATER 50 ML DISP.SYRIN IVP PRN (09:34)
--- NOTE | 2020-06-03 15:27 | NUR ---
PMP BIOETHICS MEETING HELD TODAY. PT'S WAS INVOLVED WITH THE MEETING. NOTE PLACED BY DR CALDWELL AT 0955 WILL BE USED TIME OF DECLARATION. HERE NOW, OTHER FAMILY MEMBERS WILL BE COMING. WILL CALL [facility]. EXTUBATION WILL BE DONE AFTER FAMILY LEAVES.
--- NOTE | 2020-06-03 16:20 | NUR ---
RT PT TERMINALLY EXTUBATED PER MD ORDER.
[2020-06-03] MEDS ORDERED: DC PROPOFOL WHEN EXTUBATED XX PRN (16:30)
--- NOTE | 2020-06-03 16:30 | NUR ---
RN NOTE BRAIN NOTE BY DR CALDWELL AT 0957 AFTER BIOETHICS DISCUSSION WITH PT'S . PT EXTUBATED ORDERED AFTER PT'S AND DAUGHTER LEFT. PT WAS APNEIC AFTER EXTUBATION, HEART RATE DECELERATED AND BECAME ASYSTOLIC AT 1630. NOTIFIED BY PHONE. NOTIFIED MEGHA HUNTER DNP BY PHONE.
--- NOTE | 2020-06-03 16:40 | NUR ---
ICU/RN [facility] NOTIFIED .CASE NUMBER IS [id number].THIS IS H[employer]CHO[employer] SPECIAL EDUCATION TEACHER CASE NUMBER IS [id number].
--- NOTE | 2020-06-03 18:30 | NUR ---
ICU/RN B[facility] TRANSF[facility] .
--- NOTE | 2020-06-05 13:26 | NUR ---
11:00am This SW received a phone call from Anmol Cardoza informing this SW that his had over the weekend. This SW expressed her sentiment regarding this information. Anmol wanted information on how to retrieve the body and steps moving forward regarding this . This SW gave nursing paste mixing supervisor information to Anmol and asked him to contact nursing paste mixing supervisor for further instructions.
== END 2020-06-03 16:30 | disposition expired | DRG 720 ==
LOC: ER 16:30 → TELE 21:44 → ICU 05-25 10:23
PROVIDERS: ADMIT Student in an Organized Health Care Education/Training Program; ATTEND Nurse Practitioner Acute Care
PROC: 05HY33Z Insertion of Infusion Device into Upper Vein, Percutaneous Approach (ICD-10-PCS; principal; 2020-05-27)
PROC: 0BH18EZ Insertion of Endotracheal Airway into Trachea, Via Natural or Artificial Opening Endoscopic (ICD-10-PCS; principal; 2020-05-27)
PROC: 5A1955Z Respiratory Ventilation, Greater than 96 Consecutive Hours (ICD-10-PCS; principal; 2020-05-27)
PROC: 30233R1 Transfusion of Nonautologous Platelets into Peripheral Vein, Percutaneous Approach (ICD-10-PCS; 2020-05-29)
PROC: 30233N1 Transfusion of Nonautologous Red Blood Cells into Peripheral Vein, Percutaneous Approach (ICD-10-PCS; 2020-05-31)
PROC: 4A1 Measurement and Monitoring, Physiological Systems, Monitoring (ICD-10-PCS; 2020-06-02)
PROC: B548ZZA Ultrasonography of Superior Vena Cava, Guidance (ICD-10-PCS; 2020-06-03)
PROC: 02HV33Z Insertion of Infusion Device into Superior Vena Cava, Percutaneous Approach (ICD-10-PCS; 2020-06-03)
DX: A41.9 Sepsis, unspecified organism (principal); N17.0 Acute kidney failure with tubular necrosis; B17.9 Acute viral hepatitis, unspecified; E86.0 Dehydration; F32.9 Major depressive disorder, single episode, unspecified; F10.129 Alcohol abuse with intoxication, unspecified; K22.6 Gastro-esophageal laceration-hemorrhage syndrome; J96.01 Acute respiratory failure with hypoxia; G92 Toxic encephalopathy; N39.0 Urinary tract infection, site not specified; E16.2 Hypoglycemia, unspecified; K72.90 Hepatic failure, unspecified without coma; K72.00 Acute and subacute hepatic failure without coma; K70.10 Alcoholic hepatitis without ascites; R13.10 Dysphagia, unspecified; E87.1 Hypo-osmolality and hyponatremia; D68.9 Coagulation defect, unspecified; D64.9 Anemia, unspecified; G93.6 Cerebral edema; R65.21 Severe sepsis with septic shock; K76.7 Hepatorenal syndrome; F19.10 Other psychoactive substance abuse, uncomplicated; Y90.0 Blood alcohol level of less than 20 mg/100 ml; D65 Disseminated intravascular coagulation [defibrination syndrome]; E86.1 Hypovolemia; J69.0 Pneumonitis due to inhalation of food and vomit; M62.82 Rhabdomyolysis
CPT/HCPCS: 31720; 36415; 36569; 36600; 70450-TC; 71045-TC; 76700-TC; 80048-TC; 80053-TC; 80061-TC; 80076-TC; 80305; 81000-TC; 82140-TC; 82272-TC; 82550-TC; 82553; 82570-TC; 82803-TC; 82962-TC; 83690-TC; 83735-TC; 83970; 84100-TC; 84155; 84155-TC; 84165; 84300-TC; 84443-TC; 84703-TC; 85025-TC; 85027-TC; 85396; 85610-TC; 85652-TC; 86225; 86235; 86706; 86803; 86850-TC; 86921-TC; 87040-TC; 87070-TC; 87081-TC; 87086-TC; 87340; 90935-TC; 93307-TC; 93976-TC; 94002-TC; 94003-TC; 94640-TC; 94760-TC; 94799-TC; 95819-TC; 99082-TC; A4216; A6403; C1751; C1769; C9113; C9803-CS; G0378; G0480; J0696; J1940; J2060; J2150; J2185; J2354; J2370; J2765; J3430; J3480; J3490; J7030; J7050; J7060; J7070; P9016-BL; P9034-BL; P9047; U0003-CS